=== PATIENT | female | born 1990 | race Caucasian/White ===

== ENCOUNTER 2017-04-05 14:25 | Outpatient (CLI) | payer OTHER ==
--- NOTE | 2017-04-05 18:09 | Ultrasound Report ---
ABDOMEN ULTRASOUND, LIMITED: 04/05/2017 HISTORY: Right upper quadrant pain. COMPARISON: 01/12/2014 ultrasound. Real-time scanning by the customer experience strategist with saved static images reviewed. LIVER: 14.1 cm longitudinally. Small focal area of increased echogenicity superior right lobe, 5 mm in diameter, likely a small hemangioma. Otherwise, no focal pathology seen. GALLBLADDER: No stones. A 3 mm polyp present. Wall thickness 1.4 mm. COMMON BILE DUCT: 2.4 mm. RIGHT KIDNEY: 10.1 cm longitudinally. Unremarkable. FREE FLUID: None. IMPRESSION: A 3 MM GALLBLADDER POLYP. A 5 MM HEPATIC HEMANGIOMA. OTHERWISE NEGATIVE. JOB #: [id number] EXT JOB #:[id number]
== END 2017-04-05 14:26 | disposition home or self-care (01) ==
LOC: DI 14:25
PROVIDERS: ATTEND Nurse Practitioner Family
DX: K82.4 Cholesterolosis of gallbladder (principal); D18.03 Hemangioma of intra-abdominal structures
CPT/HCPCS: 76705

== ENCOUNTER 2017-08-21 08:00 | Outpatient (CLI) | payer OTHER ==
[2017-08-22 11:44] LABS: BASOPHILS % (AUTO) 0.5 %; EOSINOPHILS # (AUTO) 0.1 10^3/uL (0.0-0.7); EOSINOPHILS % (AUTO) 2.5 %; HGB - HEMOGLOBIN 14.3 g/dL (12.0-16.0); LYMPHOCYTES # (AUTO) 1.6 10^3/uL (1.5-3.5); LYMPHOCYTES % (AUTO) 31.3 %; MEAN CORPUSCULAR HEMOGLOBIN 32.8 pg (27.0-31.0); MEAN CORPUSCULAR HGB CONC 33.5 g/dL (32.0-36.0); MEAN CORPUSCULAR VOLUME 98.2 fL (81.0-99.0); MEAN PLATELET VOLUME 8.6 fL (7.9-10.8); MONOCYTES # (AUTO) 0.5 10^3/uL (0.0-1.0); MONOCYTES % (AUTO) 8.8 %; NEUTROPHILS # (AUTO) 2.9 10^3/uL (1.5-6.6); NEUTROPHILS % (AUTO) 56.9 %; PLT - PLATELET COUNT 231 10^3/uL (130-450); RED BLOOD COUNT 4.34 10^6/uL (4.20-5.40); RED CELL DISTRIBUTION WIDTH 14.2 % (12.0-15.0); WHITE BLOOD COUNT 5.1 x10^3/uL (4.8-10.8)
[2017-08-22 12:09] LABS: ALBUMIN 4.6 g/dL (3.2-5.5); ALBUMIN/GLOBULIN RATIO 1.5 (1.0-2.2); ALKALINE PHOSPHATASE 40 IU/L (42-121); ALT ALANINE AMINOTRANSFERASE 12 IU/L (10-60); AST ASPARTATE AMINOTRANSFERASE 15 IU/L (10-42); BILIRUBIN,TOTAL 0.3 mg/dL (0.2-1.0); BUN - BLOOD UREA NITROGEN 7 mg/dL (6-20); CALCIUM 9.5 mg/dL (8.5-10.3); CARBON DIOXIDE - CO2 24 mmol/L (21-32); CHLORIDE 102 mmol/L (101-111); CREATININE 0.6 mg/dL (0.4-1.0); GFR - MDRD 120 (>89); GLUCOSE 99 mg/dL (70-100); SODIUM 138 mmol/L (135-145); TOTAL PROTEIN 7.6 g/dL (6.7-8.2)
== END 2017-08-21 08:01 | disposition home or self-care (01) ==
LOC: LAB.F 08:00
PROVIDERS: ATTEND Physician Assistant Medical
DX: Z00.00 Encounter for general adult medical examination without abnormal findings (principal); R53.83 Other fatigue
CPT/HCPCS: 36415; 80053; 84443; 85025

== ENCOUNTER 2017-09-01 15:22 | Outpatient (CLI) | payer OTHER ==
--- NOTE | 2017-09-03 08:15 | Ultrasound Report ---
EXAM: THYROID ULTRASOUND EXAM DATE: 09/01/2017 04:06 PM. CLINICAL HISTORY: ENLARGED THYROID, FATIGUE. COMPARISON: None. TECHNIQUE: Real time sonographic imaging of the thyroid was performed by the moss bleacher. Multiple re presentative static images were saved for review. FINDINGS: THYROID GLAND: Right Lobe: 4.3 x 1.0 x 1.0 cm, volume 2.2 cc. Normal background echotexture. Right Lobe Nodules: 2 solid nodules of the lower lobe, 7 mm and 6 mm respectively. No calcifications. Left Lobe: 4.6 x 1.6 x 1.2 cm, volume 4.4 cc. Normal background echotexture. Left Lobe Nodules: None. Isthmus: 0.2 cm AP. Isthmic Nodules: None. LYMPH NODES: No adenopathy demonstrated in the central or lateral compartment. IMPRESSION: Subcentimeter right thyroid nodules as above. Management recommendations are based on 2015 [place] [employer] Management Guidelines for A dult Patients with Thyroid Nodules and Differentiated Thyroid Cancer. [facility] Referring Provider Line: [phone] SITE ID: [id number]
== END 2017-09-01 15:23 | disposition home or self-care (01) ==
LOC: DI 15:22
PROVIDERS: ATTEND Physician Assistant Medical
DX: E04.2 Nontoxic multinodular goiter (principal)
CPT/HCPCS: 76536

== ENCOUNTER 2017-12-04 15:09 | Emergency (ER) | payer OTHER ==
[2017-12-04 15:25] VITALS: BP 144/92
[2017-12-04 15:49] LABS: MUDS CUTOFF CONCENTRATIONS CUTOFF CONC BELOW:
[2017-12-04 15:51] LABS: BILIRUBIN,URINE NEGATIVE (NEGATIVE); GLUCOSE, URINE (UA) NEGATIVE (NEGATIVE); KETONES,URINE (UA) NEGATIVE (NEGATIVE); LEUKOCYTE ESTERASE, URINE NEGATIVE (NEGATIVE); NITRITE,URINE NEGATIVE (NEGATIVE); OCCULT BLOOD,URINE LARGE (NEGATIVE); PROTEIN,URINE NEGATIVE (NEGATIVE); UROBILINOGEN,URINE 0.2 (NORMAL) E.U./dL (NORMAL)
[2017-12-04 15:53] LABS: CLARITY,URINE CLEAR (CLEAR); HCG UR QUAL NEGATIVE
--- NOTE | 2017-12-04 15:57 | ED Physician Documentation ---
PD HPI MHE - Stated complaint Stated Complaint: WITHDRAWAL/ANXIETY/MHE - Chief complaint Chief Complaint: MHE - History obtained from History obtained from: Patient - History of Present Illness Primary symptom: Depression, Anxiety (feeling anxiety the past couple weeks since stopping drinking, and then had day of heavy drinking 2 nights ago, and then more anxious yeserday/today. Having some intrusive thoughts, such as "I wonder what would happen if I drove off the road" without really wanting to hurt herself. She is bothered by these and would like help. She is not hearing voices nor having any visual hallucinations.). No: Suicide attempt, Psychosis Timing - onset: How many weeks ago (2 weeks anxious, off alcohol. Was doing better and then drank again a day and is feeling more anxious the past day, as well as underlying depression. Not suicidal per se.) Contributing factors: Substance abuse - ETOH. No: Substance abuse - drugs Recently seen: Not recently seen Review of Systems Constitutional: denies: Fever Nose: denies: Rhinorrhea / runny nose, Congestion Throat: denies: Sore throat Cardiac: denies: Chest pain / pressure, Palpitations Respiratory: denies: Dyspnea, Cough GI: reports: Nausea (less appetite). denies: Abdominal Pain, Vomiting, Diarrhea Skin: denies: Rash, Lesions Neurologic: denies: Generalized weakness, Focal weakness, Numbness, Near syncope Psychiatric: reports: Depressed, Anxiety. denies: Suicidal, Homicidal, Delusions, Insomnia Endocrine: denies: Weight loss Immunocompromised: denies: Immunocompromised PD PAST MEDICAL HISTORY - Past Medical History Cardiovascular: None Respiratory: None Neuro: None Endocrine/Autoimmune: None Psych: Depression, Anxiety - Past Surgical History Past Surgical History: Yes - Present Medications Home Medications: Ambulatory Orders Medication Instructions Recorded Confirmed Amitriptyline [Elavil] 25 mg PO HS #30 tablet 12/04/17 Cholecalciferol (Vitamin D3) 2,000 unit PO DAILY #60 capsule 12/04/17 [Vitamin D] clonazePAM [Clonazepam] 0.5 mg PO BID PRN #20 tablet 12/04/17 - Allergies Allergies/Adverse Reactions: Allergies Allergy/AdvReac Type Severity Reaction Status Date / Time bupropion [From Wellbutrin] AdvReac Anxiety Verified 12/04/17 15:25 - Social History Does the pt smoke?: Yes Smoking Status: Current every day smoker Does the pt drink ETOH?: Yes Does the pt have substance abuse?: Yes PD ED PE NORMAL - Vitals Vital signs reviewed: Yes - General General: Alert and oriented X 3, No acute distress, Well developed/nourished, Other (pleasant, insightful, concerned about some intrusive thoughts. Speaks openly about symptoms. States she is committed to stopping drinking. ) - HEENT HEENT: Pharynx benign - Neck Neck: Supple, no meningeal sign, No adenopathy, Thyroid normal - Cardiac Cardiac: RRR, No murmur - Respiratory Respiratory: Clear bilaterally - Abdomen Abdomen: Normal bowel sounds, Soft, Non distended, No organomegaly, Other (mild epigastric tenderness without guarding. ) - Back Back: No CVA TTP - Derm Derm: Normal color, Warm and dry - Neuro Neuro: Alert and oriented X 3, No motor deficit, Normal speech - Psych Psych: Normal affect. No: Normal mood (somewhat sad, but not tearful. Does not present as anxious right now. ) Results - Vitals Vitals: Vital Signs - 24 hr 12/04/17 15:21 Temperature 36.7 C Heart Rate 93 Respiratory 14 Rate Blood Pressure 144/92 H O2 Saturation 98 Oxygen O2 Source Room air - Labs Labs: Laboratory Tests 12/04/17 12/04/17 12/04/17 15:40 15:40 15:50 WBC 11.0 H RBC 4.64 Hgb 14.7 Hct 44.8 MCV 96.6 MCH 31.7 H MCHC 32.8 RDW 13.1 Plt Count MPV 8.3 Neut # 8.7 H Lymph # 1.6 Bond # 0.5 Eos # 0.1 Baso # 0.0 Absolute Nucleated RBC 0.01 Nucleated RBC % 0.1 Manual Slide Review Indicated Platelet Estimate NORMAL (130-450,000) Platelet Morphology PLATELET CLUMPING RBC Morph Micro Appear NORMAL APPEARANCE Sodium Potassium Chloride Carbon Dioxide Anion Gap BUN Creatinine Estimated GFR (MDRD) Glucose Calcium Total Bilirubin AST ALT Alkaline Phosphatase Total Protein Albumin Globulin Albumin/Globulin Ratio Lipase TSH Urine Color YELLOW Urine Clarity CLEAR Urine pH 6.0 Ur Specific [place] 1.010 Urine Protein NEGATIVE Urine Glucose (UA) NEGATIVE Urine Ketones NEGATIVE Urine Occult Blood LARGE H Urine Nitrite NEGATIVE Urine Bilirubin NEGATIVE Urine Urobilinogen 0.2 (NORMAL) Ur Leukocyte Esterase NEGATIVE Urine RBC 11-25 H Urine WBC 0-3 Ur Squamous Epith Cells RARE Squamous Urine Bacteria Rare Ur Microscopic Review INDICATED Urine Culture Comments NOT INDICATED Urine HCG, Qual NEGATIVE Salicylates Urine Opiates Screen NEGATIVE Ur Oxycodone Screen NEGATIVE Urine Methadone Screen NEGATIVE Ur Propoxyphene Screen NEGATIVE Acetaminophen Ur Barbiturates Screen NEGATIVE Ur Tricyclics Screen NEGATIVE Ur Phencyclidine Scrn NEGATIVE Ur Amphetamine Screen NEGATIVE U Methamphetamines Scrn NEGATIVE U Benzodiazepines Scrn NEGATIVE Urine Cocaine Screen NEGATIVE U Cannabinoids Screen NEGATIVE Ethyl Alcohol 12/04/17 12/04/17 15:50 15:50 WBC RBC Hgb Hct MCV MCH MCHC RDW Plt Count MPV Neut # Lymph # Bond # Eos # Baso # Absolute Nucleated RBC Nucleated RBC % Manual Slide Review Platelet Estimate Platelet Morphology RBC Morph Micro Appear Sodium 135 Potassium 3.7 Chloride 102 Carbon Dioxide 21 Anion Gap 12.0 BUN 9 Creatinine 0.6 Estimated GFR (MDRD) 119 Glucose 110 H Calcium 9.4 Total Bilirubin 1.0 AST 18 ALT 17 Alkaline Phosphatase 46 Total Protein 7.8 Albumin 4.8 Globulin 3.0 Albumin/Globulin Ratio 1.6 Lipase 17 L TSH 2.07 Urine Color Urine Clarity Urine pH Ur Specific [place] Urine Protein Urine Glucose (UA) Urine Ketones Urine Occult Blood Urine Nitrite Urine Bilirubin Urine Urobilinogen Ur Leukocyte Esterase Urine RBC Urine WBC Ur Squamous Epith Cells Urine Bacteria Ur Microscopic Review Urine Culture Comments Urine HCG, Qual Salicylates < 6.0 Urine Opiates Screen Ur Oxycodone Screen Urine Methadone Screen Ur Propoxyphene Screen Acetaminophen < 10 L Ur Barbiturates Screen Ur Tricyclics Screen Ur Phencyclidine Scrn Ur Amphetamine Screen U Methamphetamines Scrn U Benzodiazepines Scrn Urine Cocaine Screen U Cannabinoids Screen Ethyl Alcohol < 5.0 PD MEDICAL DECISION MAKING - ED course Complexity details: considered differential (she had been sober for 2 weeks and then drank heavily 2 nights ago and having anxiety and some intrusive thoughts today. Not suicidal per se. Social Work not going to be able to see her (they leave at 5 pm and called at 16:40 to say did not have time - consulted/voice mail msg was 15:38. ), d/w patient ED course: I talked with patient and she is not suicidal. Concerned about the intrusive thoughts and feeling of anxiety. This might be some withdrawal symptoms. Could be underlying anxiety and depression not being covered by the prior regular alcohol. She had had side effects significantly with trials of Paxil and Prozac in the past. Wellbutrin did okay for awhile but then some side effects. So SSRIs not likely a good choice for her. Could try low dose Elavil at night, Vitamin D, and the short term some benzo for the anxiety/?withdrawal. To follow up with PMD. She is trying to get appt back with [facility]. Given Crisis Line number. She verbally contracts to not hurt herself and will call Crisis Line if needs help. Departure - Departure Disposition: Home, Self Care Clinical Impression: Anxiety, Alcohol abuse Depression Qualifiers: Depression Type: other depression Qualified Code(s): F32.89 - Other specified depressive episodes Condition: Stable Record reviewed to determine appropriate education?: Yes Instructions: ED Depression Follow-Up: Darleen Ngo PA-C [Primary Care Provider] - Prescriptions: Amitriptyline [Elavil] 25 mg PO HS #30 tablet Cholecalciferol (Vitamin D3) [Vitamin D] 2,000 unit PO DAILY #60 capsule clonazePAM [Clonazepam] 0.5 mg PO BID PRN #20 tablet PRN Reason: Anxiety Comments: Drink lots of fluids. No alcohol. Your stomach may be a little irritated from prior alcohol use and you could consider some acid reducing medicine such as ranitidine daily for a week or two. Vitamin D 2000 units daily for the next month or two to help with depression. In the short-term to help with anxiety and likely some mild withdrawal symptoms, you can use clonazepam at night and add another dose during the day if needed for symptoms. For the longer term for anxiety and depression, could start with a low-dose of Elavil 25 mg at night. Follow-up with your primary care in the next week or so and see how you are doing with these medications. If need be for depression you can also call the crisis line when needed. Try to follow up with [facility] for an appointment at their next availability. Discharge Date/Time: 12/04/17 16:40
[2017-12-04 16:02] LABS: BASOPHILS % (AUTO) 0.4 %; EOSINOPHILS # (AUTO) 0.1 10^3/uL (0.0-0.7); EOSINOPHILS % (AUTO) 0.7 %; HGB - HEMOGLOBIN 14.7 g/dL (12.0-16.0); LYMPHOCYTES # (AUTO) 1.6 10^3/uL (1.5-3.5); MEAN CORPUSCULAR HEMOGLOBIN 31.7 pg (27.0-31.0); MEAN CORPUSCULAR HGB CONC 32.8 g/dL (32.0-36.0); MEAN CORPUSCULAR VOLUME 96.6 fL (81.0-99.0); MEAN PLATELET VOLUME 8.3 fL (7.9-10.8); MONOCYTES # (AUTO) 0.5 10^3/uL (0.0-1.0); MONOCYTES % (AUTO) 4.9 %; NEUTROPHILS # (AUTO) 8.7 10^3/uL (1.5-6.6); RED BLOOD COUNT 4.64 10^6/uL (4.20-5.40); RED CELL DISTRIBUTION WIDTH 13.1 % (12.0-15.0)
[2017-12-04 16:02] LABS: AMPHETAMINE SCREEN,URINE NEGATIVE (NEGATIVE); BENZODIAZEPINES SCREEN, URINE NEGATIVE (NEGATIVE); COCAINE SCREEN URINE NEGATIVE (NEGATIVE); METHADONE SCREEN, URINE NEGATIVE (NEGATIVE); METHAMPHETAMINES SCREEN, URINE NEGATIVE (NEGATIVE); OPIATE SCREEN, URINE NEGATIVE (NEGATIVE); OXYCODONE SCREEN, URINE NEGATIVE (NEGATIVE); PROPOXYPHENE SCREEN, URINE NEGATIVE (NEGATIVE); TRICYCLIC ANTIDEPRESSANT,URINE NEGATIVE (NEGATIVE)
[2017-12-04 16:03] LABS: BACTERIA,URINE Rare /HPF (None Seen); SQUAMOUS EPITHELIAL CELL,UR RARE Squamous (<= Few)
[2017-12-04 16:13] LABS: ALBUMIN 4.8 g/dL (3.2-5.5); ALBUMIN/GLOBULIN RATIO 1.6 (1.0-2.2); ALKALINE PHOSPHATASE 46 IU/L (42-121); ALT ALANINE AMINOTRANSFERASE 17 IU/L (10-60); AST ASPARTATE AMINOTRANSFERASE 18 IU/L (10-42); BUN - BLOOD UREA NITROGEN 9 mg/dL (6-20); CALCIUM 9.4 mg/dL (8.5-10.3); CARBON DIOXIDE - CO2 21 mmol/L (21-32); CHLORIDE 102 mmol/L (101-111); CREATININE 0.6 mg/dL (0.4-1.0); GFR - MDRD 119 (>89); GLUCOSE 110 mg/dL (70-100); LIPASE 17 U/L (22-51); SALICYLATE < 6.0 mg/dL; SODIUM 135 mmol/L (135-145); TOTAL PROTEIN 7.8 g/dL (6.7-8.2)
[2017-12-04 16:15] LABS: ACETAMINOPHEN < 10 ug/mL (10-30)
[2017-12-04 16:24] LABS: PLATELET ESTIMATE, MANUAL NORMAL (130-450,000) (NORMAL); PLATELET MORPHOLOGY PLATELET CLUMPING (NORMAL); RBC MORPHOLOGY (MULTIPLE) NORMAL APPEARANCE (NORMAL)
== END 2017-12-04 16:40 | disposition home or self-care (01) ==
LOC: ED 15:09
DX: F32.89 Other specified depressive episodes (principal); F41.9 Anxiety disorder, unspecified; F10.10 Alcohol abuse, uncomplicated; F17.200 Nicotine dependence, unspecified, uncomplicated
CPT/HCPCS: 36415; 80053; 80306; 80307; 80320; 80329; 81001; 81003; 81025; 83690; 84443; 85025; 87086; 99283; 99284

== ENCOUNTER 2018-02-10 17:53 | Emergency (ER) | payer OTHER ==
--- NOTE | 2018-02-10 19:15 | ED Physician Documentation ---
PD HPI DYSPNEA - Stated complaint Stated Complaint: DIZZY/SOA - Chief complaint Chief Complaint: Cardiac - History obtained from History obtained from: Patient - History of Present Illness Timing - onset: Today (27-year-old woman with history of anxiety, she stopped her fluoxetine about a week ago because she was going to go bring binge drinking and did not want to combine that with her Prozac. Today she started to feel very short of breath and she felt bilateral hand numbness and perioral numbness in the arm started cramping especially when she had her blood pressure taken in triage. She feels much better now after some time without specific intervention.) Review of Systems Constitutional: denies: Fever, Chills, Fatigue Cardiac: denies: Pedal edema, Calf pain Respiratory: denies: Cough, Hemoptysis, Wheezing PD PAST MEDICAL HISTORY - Past Medical History Cardiovascular: None Respiratory: None Neuro: None Endocrine/Autoimmune: None Psych: Depression, Anxiety - Past Surgical History Past Surgical History: Yes - Allergies Allergies/Adverse Reactions: Allergies Allergy/AdvReac Type Severity Reaction Status Date / Time bupropion [From Wellbutrin] AdvReac Anxiety Verified 02/10/18 18:04 - Social History Does the pt smoke?: Yes Smoking Status: Current every day smoker Does the pt drink ETOH?: Yes Does the pt have substance abuse?: Yes - Immunizations Immunizations are current?: Yes PD ED PE NORMAL - Vitals Vital signs reviewed: Yes - General General: Alert and oriented X 3, No acute distress - Neck Neck: Supple, no meningeal sign, No bony TTP - Cardiac Cardiac: RRR, No murmur - Respiratory Respiratory: No respiratory distress, Clear bilaterally - Abdomen Abdomen: Non tender - Neuro Neuro: Alert and oriented X 3, Normal speech Eye Opening: Spontaneous Motor: Obeys Commands Verbal: Oriented GCS Score: 15 - Psych Psych: Normal mood, Normal affect Results - Vitals Vitals: Vital Signs - 24 hr 02/10/18 02/10/18 18:00 18:36 Temperature 36.6 C Heart Rate 89 75 Respiratory 20 17 Rate Blood Pressure 91/75 112/79 O2 Saturation 100 100 Oxygen O2 Source Room air - EKG (time done) 1808 Rate: Rate (enter#) (80) Rhythm: NSR [place]: Normal Intervals: Normal HI QRS: Normal Ischemia: Normal ST segments Computer interpretation: Agree with computer PD MEDICAL DECISION MAKING - ED course ED course: She was reassured that the history is completely consistent with a panic attack and she has some alprazolam at home she can take for recurrent symptoms. - Sepsis Event Vital Signs: Vital Signs - 24 hr 02/10/18 02/10/18 18:00 18:36 Temperature 36.6 C Heart Rate 89 75 Respiratory 20 17 Rate Blood Pressure 91/75 112/79 O2 Saturation 100 100 Oxygen O2 Source Room air Departure - Departure Disposition: 01 Home, Self Care Clinical Impression: Anxiety Condition: Good Record reviewed to determine appropriate education?: Yes Instructions: ED Panic Attack Comments: Call your doctor to arrange a follow-up appointment, make the next available appointment. In the interim, return anytime if worse or if new symptoms develop.
[2018-02-10 19:20] VITALS: BP 131/88
== END 2018-02-10 19:21 | disposition home or self-care (01) ==
LOC: ED 17:53
DX: F41.9 Anxiety disorder, unspecified (principal); F17.200 Nicotine dependence, unspecified, uncomplicated
CPT/HCPCS: 80053; 83690; 85025; 93005; 99283

== ENCOUNTER 2018-05-11 18:45 | Emergency (ER) | payer OTHER ==
[2018-05-11 19:26] LABS: BASOPHILS % (AUTO) 0.2 %; EOSINOPHILS # (AUTO) 0.2 10^3/uL (0.0-0.7); EOSINOPHILS % (AUTO) 2.5 %; HGB - HEMOGLOBIN 14.2 g/dL (12.0-16.0); LYMPHOCYTES # (AUTO) 1.9 10^3/uL (1.5-3.5); LYMPHOCYTES % (AUTO) 28.5 %; MEAN CORPUSCULAR VOLUME 94.3 fL (81.0-99.0); MEAN PLATELET VOLUME 7.8 fL (7.9-10.8); MONOCYTES # (AUTO) 0.5 10^3/uL (0.0-1.0); MONOCYTES % (AUTO) 7.9 %; NEUTROPHILS # (AUTO) 4.2 10^3/uL (1.5-6.6); NEUTROPHILS % (AUTO) 60.9 %; PLT - PLATELET COUNT 206 10^3/uL (130-450); WHITE BLOOD COUNT 6.8 x10^3/uL (4.8-10.8)
[2018-05-11 19:27] LABS: BILIRUBIN,URINE NEGATIVE (NEGATIVE); GLUCOSE, URINE (UA) NEGATIVE (NEGATIVE); KETONES,URINE (UA) NEGATIVE (NEGATIVE); LEUKOCYTE ESTERASE, URINE NEGATIVE (NEGATIVE); NITRITE,URINE NEGATIVE (NEGATIVE); OCCULT BLOOD,URINE MODERATE (NEGATIVE); PROTEIN,URINE NEGATIVE (NEGATIVE); UROBILINOGEN,URINE 0.2 (NORMAL) E.U./dL (NORMAL)
--- NOTE | 2018-05-11 19:27 | ED Physician Documentation ---
PD HPI ABD PAIN - Stated complaint Stated Complaint: ABD PX/VOMITING - Chief complaint Chief Complaint: Abd Pain - History obtained from History obtained from: Patient, Family - History of Present Illness Timing - onset: Other (27-year-old woman with history of recurrent right upper quadrant pain, in the past she has had ultrasound showing a small gallbladder polyp and she does have a history of alcohol abuse. She quit drinking about 3 days ago. She presents with 5 days of stabbing intermittent right upper quadrant pain that is worse with certain positions and worse with deep breathing and eating. There is no associated shortness of breath. She has been vomiting without blood. She quit drinking 3 days ago, wonders if she might be withdrawing but denies any shakiness, headache, hallucinations.) Review of Systems Ten Systems: 10 systems reviewed and negative Constitutional: denies: Fever, Chills Throat: denies: Dental pain / toothache, Sore throat Cardiac: denies: Chest pain / pressure, Palpitations Respiratory: denies: Dyspnea, Cough PD PAST MEDICAL HISTORY - Past Medical History Cardiovascular: None Respiratory: None Neuro: None Endocrine/Autoimmune: None Psych: Depression, Anxiety - Past Surgical History Past Surgical History: Yes - Present Medications Home Medications: Ambulatory Orders Medication Instructions Recorded Confirmed Omeprazole 20 mg PO DAILY 30 Days tablet. 05/11/18 - Allergies Allergies/Adverse Reactions: Allergies Allergy/AdvReac Type Severity Reaction Status Date / Time bupropion [From Wellbutrin] AdvReac Anxiety Verified 05/11/18 18:58 - Social History Does the pt smoke?: Yes Smoking Status: Current every day smoker Does the pt drink ETOH?: Yes Does the pt have substance abuse?: Yes - Immunizations Immunizations are current?: Yes PD ED PE NORMAL - Vitals Vital signs reviewed: Yes - General General: Alert and oriented X 3, No acute distress - HEENT HEENT: PERRL, EOMI, Other (Sclera are nonicteric) - Neck Neck: Supple, no meningeal sign, No bony TTP - Cardiac Cardiac: RRR, No murmur - Respiratory Respiratory: No respiratory distress, Clear bilaterally - Abdomen Abdomen: Other (Mild right upper quadrant tenderness with negative Franz sign, no guarding or rebound.) - Back Back: No CVA TTP, No spinal TTP - Derm Derm: Normal color, Warm and dry - Extremities Extremities: No edema, No calf tenderness / cord - Neuro Neuro: Alert and oriented X 3, Normal speech Results - Vitals Vitals: Vital Signs - 24 hr 05/11/18 05/11/18 18:56 21:07 Temperature 36.9 C Heart Rate 97 71 Respiratory 18 16 Rate Blood Pressure 136/90 H 139/86 H O2 Saturation 100 100 Oxygen O2 Source Room air - Labs Labs: Laboratory Tests 05/11/18 05/11/18 05/11/18 19:15 19:21 19:21 WBC 6.8 RBC 4.30 Hgb 14.2 Hct 40.5 MCV 94.3 MCH 33.0 H MCHC 35.0 RDW 13.0 Plt Count 206 MPV 7.8 L Neut # (Auto) 4.2 Lymph # (Auto) 1.9 [place] # (Auto) 0.5 Eos # (Auto) 0.2 Baso # (Auto) 0.0 Absolute Nucleated RBC 0.00 Nucleated RBC % 0.0 Sodium 137 Potassium 4.1 Chloride 104 Carbon Dioxide 26 Anion Gap 7.0 BUN 11 Creatinine 0.5 Estimated GFR (MDRD) 147 Glucose 95 Calcium 9.3 Total Bilirubin 0.3 AST 14 ALT 13 Alkaline Phosphatase 57 Total Protein 7.9 Albumin 4.5 Globulin 3.4 Albumin/Globulin Ratio 1.3 Lipase 22 Urine Color YELLOW Urine Clarity HAZY Urine pH 6.0 Ur Specific [place] 1.015 Urine Protein NEGATIVE Urine Glucose (UA) NEGATIVE Urine Ketones NEGATIVE Urine Occult Blood MODERATE H Urine Nitrite NEGATIVE Urine Bilirubin NEGATIVE Urine Urobilinogen 0.2 (NORMAL) Ur Leukocyte Esterase NEGATIVE Urine RBC 0-5 Urine WBC 4-5 Ur Squamous Epith Cells FEW Squamous Urine Bacteria Rare Ur Microscopic Review INDICATED Urine Culture Comments NOT INDICATED Urine HCG, Qual NEGATIVE Ethyl Alcohol < 5.0 - Rads (name of study) RUQ son Radiology: EMP read contemporaneously (Basically a negative study without cholelithiasis or cholecystitis. She does have a tiny nonmobile nonshadowing echogenicity in the gallbladder that may be a polyp, about 2 mm, basically unchanged from prior exam.) PD MEDICAL DECISION MAKING - ED course ED course: 27-year-old woman who is trying to quit heavy alcohol use presents with 5 days of right upper quadrant pain. She does not appear jaundiced or significantly tender. She declined pain medication on initial evaluation. She had specific concerns about prior ultrasound showing a gallbladder polyp and wondering if her gallbladder needed to be taken out or if her liver was inflamed. Gallbladder polyp really I think is too small to be causing symptoms and there is no evidence of alcoholic hepatitis on labs. She declined pain medication, but we decided to try a GI cocktail to see if this might be more likely to be alcoholic gastritis. She had excellent relief with a GI cocktail likely confirming the diagnosis of alcoholic gastritis and we will start a PPI. Departure - Departure Disposition: 01 Home, Self Care Clinical Impression: Gastritis Qualifiers: Gastritis type: alcoholic Chronicity: chronic Gastritis bleeding: without bleeding Qualified Code(s): K29.20 - Alcoholic gastritis without bleeding Condition: Good Record reviewed to determine appropriate education?: Yes Instructions: ED Gastritis Prescriptions: Omeprazole 20 mg PO DAILY 30 Days tablet. Comments: As discussed, the relief you had with the GI cocktail in addition to the lack of other findings, specifically Unremarkable gallbladder ultrasound and lack of liver inflammation suggests that your symptoms are due to alcoholic gastritis. Continue to refrain from alcohol. Used to have relief for a few days with the proton pump inhibitor "omeprazole." Call your doctor to arrange a follow-up appointment, make the next available appointment. In the interim, return anytime if worse or if new symptoms develop.
[2018-05-11 19:28] LABS: CLARITY,URINE HAZY (CLEAR); HCG UR QUAL NEGATIVE
[2018-05-11] MEDS ORDERED: ONDANSETRON 4 MG/2 ML VIAL IVP STA (19:28)
[2018-05-11 19:36] LABS: BACTERIA,URINE Rare /HPF (None Seen); RBC,URINE 0-5 /HPF (0-5); SQUAMOUS EPITHELIAL CELL,UR FEW Squamous (<= Few)
[2018-05-11 19:36] LABS: ALBUMIN 4.5 g/dL (3.2-5.5); ALBUMIN/GLOBULIN RATIO 1.3 (1.0-2.2); ALKALINE PHOSPHATASE 57 IU/L (42-121); ALT ALANINE AMINOTRANSFERASE 13 IU/L (10-60); AST ASPARTATE AMINOTRANSFERASE 14 IU/L (10-42); BILIRUBIN,TOTAL 0.3 mg/dL (0.2-1.0); BUN - BLOOD UREA NITROGEN 11 mg/dL (6-20); CALCIUM 9.3 mg/dL (8.5-10.3); CARBON DIOXIDE - CO2 26 mmol/L (21-32); CHLORIDE 104 mmol/L (101-111); CREATININE 0.5 mg/dL (0.4-1.0); GFR - MDRD 147 (>89); GLUCOSE 95 mg/dL (70-100); LIPASE 22 U/L (22-51); SODIUM 137 mmol/L (135-145); TOTAL PROTEIN 7.9 g/dL (6.7-8.2)
--- NOTE | 2018-05-11 20:53 | Ultrasound Report ---
Reason: RUQ pain, h/o small GB polyp Procedure Date: 05/11/2018 Accession Number: [id number] / [id number] Procedure: US - Abdomen Limited CPT Code: FULL RESULT: EXAM: ABDOMEN ULTRASOUND LIMITED, RUQ EXAM DATE: 05/11/2018 08:20 PM. CLINICAL HISTORY: RUQ pain, h/o small GB polyp. COMPARISON: ABDOMEN LIMITED 04/05/2017 2:41 PM. TECHNIQUE: Real-time scanning was performed with static images obtained. FINDINGS: Liver: Tiny echogenic focus in the left hepatic lobe measuring 5 mm may represent a small hemangioma. Otherwise unremarkable appearance of the liver. 14.3 cm. Main portal vein flow: Hepatopetal. Gallbladder: No cholelithiasis, pericholecystic fluid, or wall thickening. Tiny non-mobile, nonshadowing echogenicity in the gallbladder measuring 2 mm may represent a polyp. This appears unchanged from the prior exam. Based on size, no follow-up needed. Biliary System: CBD measures 3 mm. No intrahepatic or extrahepatic ductal dilatation. Other: The right kidney measures 9.3 cm in length and has a normal appearance. IMPRESSION: No evidence of cholelithiasis or acute cholecystitis. [facility]
[2018-05-11] MEDS ORDERED: LIDOCAINE VISCOUS 2% 15 ML UDC MM STA (21:00)
[2018-05-11] MEDS ORDERED: MAG HYDROX/AL HYDROX/SIMETH 30 ML UDC PO STA (21:00)
[2018-05-11 21:07] VITALS: BP 139/86
[2018-05-11] MEDS ORDERED: PANTOPRAZOLE 40 MG TABLET PO STA (21:19)
== END 2018-05-11 21:27 | disposition home or self-care (01) ==
LOC: ED 18:45
DX: K29.20 Alcoholic gastritis without bleeding (principal); F17.200 Nicotine dependence, unspecified, uncomplicated
CPT/HCPCS: 36415; 76705; 80053; 80320; 81001; 81025; 83690; 85025; 96374; 99283; A9270; 81003; 87086

== ENCOUNTER 2019-08-13 15:15 | Outpatient (CLI) | payer BC, OTHER | END 2019-08-13 23:59 | disposition home or self-care (01) | LOC: LAB.R 15:15 | PROVIDERS: ATTEND Physician Assistant Medical | DX: J02.9 Acute pharyngitis, unspecified (principal) | CPT/HCPCS: 87070 ==

== ENCOUNTER 2019-09-01 12:21 | Outpatient (CLI) | payer BC ==
[2019-09-01 12:39] LABS: BASOPHILS % (AUTO) 0.3 %; EOSINOPHILS # (AUTO) 0.5 10^3/uL (0.0-0.7); EOSINOPHILS % (AUTO) 5.5 %; HGB - HEMOGLOBIN 13.7 g/dL (12.0-16.0); LYMPHOCYTES # (AUTO) 2.6 10^3/uL (1.5-3.5); LYMPHOCYTES % (AUTO) 28.2 %; MEAN CORPUSCULAR HEMOGLOBIN 30.4 pg (27.0-31.0); MEAN CORPUSCULAR HGB CONC 31.8 g/dL (32.0-36.0); MEAN CORPUSCULAR VOLUME 95.6 fL (81.0-99.0); MEAN PLATELET VOLUME 9.2 fL (7.9-10.8); MONOCYTES # (AUTO) 0.9 10^3/uL (0.0-1.0); MONOCYTES % (AUTO) 9.9 %; NEUTROPHILS # (AUTO) 5.2 10^3/uL (1.5-6.6); NEUTROPHILS % (AUTO) 55.8 %; PLT - PLATELET COUNT 254 10^3/uL (130-450); RED BLOOD COUNT 4.51 10^6/uL (4.20-5.40); RED CELL DISTRIBUTION WIDTH 12.8 % (12.0-15.0); WHITE BLOOD COUNT 9.3 x10^3/uL (4.8-10.8)
== END 2019-09-01 12:22 | disposition home or self-care (01) ==
LOC: LAB 12:21
PROVIDERS: ATTEND Nurse Practitioner
DX: Z00.00 Encounter for general adult medical examination without abnormal findings (principal); Z13.29 Encounter for screening for other suspected endocrine disorder
CPT/HCPCS: 36415; 84443; 85025

== ENCOUNTER 2020-04-06 16:58 | Outpatient (CLI) | payer BC | END 2020-04-06 16:59 | disposition home or self-care (01) | LOC: COV 16:58 | PROVIDERS: ATTEND Family Medicine | DX: R05 Cough (principal); R06.02 Shortness of breath; R53.83 Other fatigue; J02.9 Acute pharyngitis, unspecified; R19.7 Diarrhea, unspecified; R09.81 Nasal congestion; R11.2 Nausea with vomiting, unspecified; Z20.828 Contact with and (suspected) exposure to other viral communicable diseases ==

== ENCOUNTER 2020-07-12 15:15 | Outpatient (CLI) | payer BC | END 2020-07-12 15:16 | disposition home or self-care (01) | LOC: LAB 15:15 | PROVIDERS: ATTEND Midwife | DX: O20.0 Threatened abortion (principal) | CPT/HCPCS: 36415; 84702 ==

== ENCOUNTER 2020-07-15 13:21 | Outpatient (CLI) | payer BC | END 2020-07-15 13:22 | disposition home or self-care (01) | LOC: LAB 13:21 | PROVIDERS: ATTEND Midwife | DX: O20.0 Threatened abortion (principal) | CPT/HCPCS: 36415; 84144; 84702 ==

== ENCOUNTER 2020-07-20 10:33 | Outpatient (CLI) | payer BC | END 2020-07-20 10:34 | disposition home or self-care (01) | LOC: LAB 10:33 | PROVIDERS: ATTEND Midwife | DX: O20.0 Threatened abortion (principal) | CPT/HCPCS: 36415; 84144; 84702 ==

== ENCOUNTER 2020-08-06 12:44 | Outpatient (CLI) | payer BC ==
--- NOTE | 2020-08-06 16:19 | Ultrasound Report ---
PROCEDURE: OB First Trimester w/TV INDICATIONS: POSITIVE MILDRED, SPOTTING OUTSIDE/PRIOR DATING DATA: Last menstrual period (LMP): 05/04/2020. LMP-based estimated date of delivery (JANELLE): 03/11/2021. First dating scan (date and location): 08/06/2020. Estimated date of delivery (JANELLE) from first dating scan: Not applicable. TECHNIQUE: Real-time scanning was performed of the fetus and maternal pelvic organs, with image documentation. Endovaginal scanning was also performed to better visualize the fetus and maternal ovaries. COMPARISON: None FINDINGS: Embryo: There is no visualized intrauterine or extrauterine Measurement variability in dating: +/- 4 weeks by LMP, +/- 7 days by mean sac diameter (use before 6 weeks gestation if crown-rump length not able to be measured), +/- 5 days by crown-rump length (6-12 weeks gestation). Maternal organs: Ovaries demonstrate a 6 mm focus of hypoechogenicity in the right ovary suggestive of cyst.. Nabothian cyst is noted. Uterus is unremarkable. IMPRESSION: 1. No visualized intrauterine or extrauterine . Recommend correlation of beta hCG levels and continued interval ultrasound imaging follow-up as indicated. Reviewed by: Essence Gay MD on 08/06/2020 4:17 PM PST Approved by: Essence Gay MD on 08/06/2020 4:17 PM PST Station ID: [id number]
== END 2020-08-06 12:45 | disposition home or self-care (01) ==
LOC: DI 12:44
PROVIDERS: ATTEND Midwife
DX: Z32.01 Encounter for pregnancy test, result positive (principal)

== ENCOUNTER 2020-09-11 13:12 | Outpatient (CLI) | payer BC ==
--- NOTE | 2020-09-11 14:06 | Ultrasound Report ---
PROCEDURE: Head or Neck Soft Tissue INDICATIONS: MULTIPLE THYROID NODULES TECHNIQUE: Real time scanning was performed of the neck region of interest, with image documentation . COMPARISON: 09/01/2017 FINDINGS: No soft tissue neck abnormality seen bilaterally Right thyroid measures 46 mm x 17 mm x 17 mm. Isthmus measures 4 mm. Left thyroid measures 47 mm x 13 mm x 19 mm. Right mid posterior thyroid nodule is present, measuring 13 mm, which demonstrates solid composition. Echogenicity is hypoechoic. Smooth margins are present. No echogenic foci. Nodule is wider than tall . Previously seen right inferior thyroid nodule was not seen on the current examination. IMPRESSION: 1. Right mid thyroid nodule has increased in size. Continued follow-up is recommended, beginning in o ne year. Reviewed by: Clare Bhakta MD on 09/11/2020 1:05 PM [facility] Approved by: Clare Bhakta MD on 09/11/2020 1:05 PM [facility] Station ID: [id number]
== END 2020-09-11 13:13 | disposition home or self-care (01) ==
LOC: DI 13:12
PROVIDERS: ATTEND Family Medicine
DX: E04.2 Nontoxic multinodular goiter (principal)

== ENCOUNTER 2020-10-13 16:44 | Outpatient (CLI) | payer BC | END 2020-10-13 16:45 | disposition home or self-care (01) | LOC: LAB 16:44 | PROVIDERS: ATTEND Family Medicine | DX: E04.2 Nontoxic multinodular goiter (principal) | CPT/HCPCS: 36415; 84443 ==

== ENCOUNTER 2020-10-22 17:05 | Outpatient (CLI) | payer BC | END 2020-10-22 17:06 | disposition home or self-care (01) | LOC: LAB 17:05 | PROVIDERS: ATTEND Midwife | DX: O20.0 Threatened abortion (principal) | CPT/HCPCS: 36415; 84144; 84702 ==

== ENCOUNTER 2020-10-24 15:12 | Outpatient (CLI) | payer BC | END 2020-10-24 15:13 | disposition home or self-care (01) | LOC: LAB 15:12 | PROVIDERS: ATTEND Midwife | DX: O20.0 Threatened abortion (principal) | CPT/HCPCS: 36415; 84144; 84702 ==

== ENCOUNTER 2020-10-27 16:55 | Outpatient (CLI) | payer BC | END 2020-10-27 16:56 | disposition home or self-care (01) | LOC: LAB 16:55 | PROVIDERS: ATTEND Midwife | DX: O20.0 Threatened abortion (principal) | CPT/HCPCS: 36415; 84144; 84702 ==

== ENCOUNTER 2020-11-01 16:54 | Outpatient (CLI) | payer BC | END 2020-11-01 16:55 | disposition home or self-care (01) | LOC: LAB 16:54 | PROVIDERS: ATTEND Midwife | DX: O20.0 Threatened abortion (principal) | CPT/HCPCS: 36415; 84144; 84702 ==

== ENCOUNTER 2020-11-02 14:25 | Emergency (ER) | payer BC ==
[2020-11-02 14:52] LABS: BASOPHILS % (AUTO) 0.4 %; EOSINOPHILS # (AUTO) 0.2 10^3/uL (0.0-0.7); EOSINOPHILS % (AUTO) 2.9 %; HCT - HEMATOCRIT 41.3 % (37.0-47.0); HGB - HEMOGLOBIN 14.1 g/dL (12.0-16.0); LYMPHOCYTES # (AUTO) 2.5 10^3/uL (1.5-3.5); LYMPHOCYTES % (AUTO) 30.9 %; MEAN CORPUSCULAR HEMOGLOBIN 33.4 pg (27.0-31.0); MEAN CORPUSCULAR HGB CONC 34.1 g/dL (32.0-36.0); MEAN CORPUSCULAR VOLUME 97.9 fL (81.0-99.0); MEAN PLATELET VOLUME 9.2 fL (7.9-10.8); MONOCYTES # (AUTO) 0.7 10^3/uL (0.0-1.0); NEUTROPHILS # (AUTO) 4.7 10^3/uL (1.5-6.6); NEUTROPHILS % (AUTO) 57.7 %; PLT - PLATELET COUNT 269 10^3/uL (130-450); RED BLOOD COUNT 4.22 10^6/uL (4.20-5.40); WHITE BLOOD COUNT 8.2 x10^3/uL (4.8-10.8)
[2020-11-02 15:09] LABS: ALBUMIN 4.6 g/dL (3.2-5.5); ALBUMIN/GLOBULIN RATIO 1.6 (1.0-2.2); BILIRUBIN,TOTAL 0.7 mg/dL (0.2-1.0); CALCIUM 9.4 mg/dL (8.5-10.3); CREATININE 0.5 mg/dL (0.4-1.0); POTASSIUM 3.7 mmol/L (3.5-5.0); TOTAL PROTEIN 7.5 g/dL (6.7-8.2)
--- NOTE | 2020-11-02 15:09 | ED Physician Documentation ---
PD HPI MALE - Stated complaint Stated Complaint: F /LOWER ABD PX - Chief complaint Chief Complaint: Abd Pain - History obtained from History obtained from: Patient - History of Present Illness Timing - onset: Today Timing - duration: Days (1) Timing - details: Gradual onset Pain level max: 7 Pain level now: 7 Associated symptoms: No: Dysuria, Urinary frequency, Unable to urinate, Hematuria, Discharge - Additional information Additional information: Patient is a 29-year-old female, 13 para 1 who presents to the emergency department right-sided pelvic pain today and vaginal spotting. She states similar to prior ectopic when she was in her late teens. Nothing makes it better. Worse with palpation. She states that she has not had a significant work-up for her miscarriages. She states that she was told it was due to low progesterone in a prior . States her progesterone has been normal in this . Review of Systems Ten Systems: 10 systems reviewed and negative Constitutional: denies: Fever, Chills Nose: denies: Rhinorrhea / runny nose, Congestion Respiratory: denies: Cough GI: denies: Vomiting, Diarrhea Skin: denies: Rash Musculoskeletal: denies: Neck pain, Back pain Neurologic: denies: Headache PD PAST MEDICAL HISTORY - Past Medical History Cardiovascular: None Respiratory: None Neuro: None Endocrine/Autoimmune: None Psych: Depression, Anxiety - Past Surgical History Past Surgical History: Yes - Present Medications Home Medications: Ambulatory Orders Medication Instructions Recorded Confirmed Pnv No.95/Ferrous Fum/Folic AC 1 tab ORAL DAILY 11/02/20 11/02/20 [ Tablet] - Allergies Allergies/Adverse Reactions: Allergies Allergy/AdvReac Type Severity Reaction Status Date / Time bupropion [From Wellbutrin] AdvReac Anxiety Verified 11/02/20 14:30 - Social History Does the pt smoke?: Yes Smoking Status: Current every day smoker Does the pt drink ETOH?: Yes Does the pt have substance abuse?: Yes - Immunizations Immunizations are current?: Yes PD ED PE NORMAL - Vitals Vital signs reviewed: Yes - General General: Alert and oriented X 3, No acute distress - HEENT HEENT: Moist mucous membranes - Neck Neck: Supple, no meningeal sign - Cardiac Cardiac: RRR - Respiratory Respiratory: No respiratory distress, Clear bilaterally - Abdomen Abdomen: Soft, Non distended, Other (Mild tender to palpation right lower quadrant, right pelvic. No peritoneal signs) - Back Back: No CVA TTP, No spinal TTP - Derm Derm: Warm and dry - Neuro Neuro: Alert and oriented X 3 - Psych Psych: Normal mood, Normal affect Results - Vitals Vitals: Vital Signs - 24 hr 11/02/20 11/02/20 11/02/20 14:31 16:37 18:00 Temperature 36.6 C Heart Rate 94 90 87 Respiratory 18 17 18 Rate Blood Pressure 131/81 H 109/53 L 122/75 O2 Saturation 100 100 99 11/02/20 19:29 Temperature 37.2 C Heart Rate 80 Respiratory 16 Rate Blood Pressure 118/83 H O2 Saturation 100 Oxygen O2 Source Room air - Labs Labs: Laboratory Tests 11/02/20 11/02/20 11/02/20 14:47 14:47 14:47 WBC 8.2 RBC 4.22 Hgb 14.1 Hct 41.3 MCV 97.9 MCH 33.4 H MCHC 34.1 RDW 12.0 Plt Count 269 MPV 9.2 Neut # (Auto) 4.7 Lymph # (Auto) 2.5 [place] # (Auto) 0.7 Eos # (Auto) 0.2 Baso # (Auto) 0.0 Absolute Nucleated RBC 0.00 Nucleated RBC % 0.0 Sodium 136 Potassium 3.7 Chloride 104 Carbon Dioxide 22 Anion Gap 10.0 BUN 9 Creatinine 0.5 Estimated GFR (MDRD) 145 Glucose 91 Calcium 9.4 Total Bilirubin 0.7 AST 18 ALT 23 Alkaline Phosphatase 41 L Total Protein 7.5 Albumin 4.6 Globulin 2.9 Albumin/Globulin Ratio 1.6 Lipase 20 L TSH HCG, Quant 1981.00 Urine Color Urine Clarity Urine pH Ur Specific [place] Urine Protein Urine Glucose (UA) Urine Ketones Urine Occult Blood Urine Nitrite Urine Bilirubin Urine Urobilinogen Ur Leukocyte Esterase Urine RBC Urine WBC Ur Squamous Epith Cells Urine Bacteria Ur Microscopic Review Urine Culture Comments 11/02/20 11/02/20 14:47 14:48 WBC RBC Hgb Hct MCV MCH MCHC RDW Plt Count MPV Neut # (Auto) Lymph # (Auto) [place] # (Auto) Eos # (Auto) Baso # (Auto) Absolute Nucleated RBC Nucleated RBC % Sodium Potassium Chloride Carbon Dioxide Anion Gap BUN Creatinine Estimated GFR (MDRD) Glucose Calcium Total Bilirubin AST ALT Alkaline Phosphatase Total Protein Albumin Globulin Albumin/Globulin Ratio Lipase TSH 2.32 HCG, Quant Urine Color YELLOW Urine Clarity CLEAR Urine pH 6.0 Ur Specific [place] 1.010 Urine Protein NEGATIVE Urine Glucose (UA) NEGATIVE Urine Ketones 15 H Urine Occult Blood LARGE H Urine Nitrite NEGATIVE Urine Bilirubin NEGATIVE Urine Urobilinogen 0.2 (NORMAL) Ur Leukocyte Esterase NEGATIVE Urine RBC 6-10 H Urine WBC 0-3 Ur Squamous Epith Cells RARE Squamous Urine Bacteria None Seen Ur Microscopic Review INDICATED Urine Culture Comments NOT INDICATED - Rads (name of study) OB ultrasound first trimester Radiology: Prelim report reviewed, EMP read contemporaneously, See rad report PD MEDICAL DECISION MAKING - ED course Complexity details: reviewed results, re-evaluated patient, considered differential, d/w patient, d/w production support consultant ED course: 29-year-old female with what appears to be a ectopic . Her hCG has decreased since her last hCG draw from [id number]. Discussed the case with OB on-call, Dr. Washington who came and evaluated the patient. Patient was given methotrexate. Patient counseled regarding the risks of ruptured ectopic. 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 Patient will follow up closely with Dr. Washington in the clinic to trend hCGs and to follow-up on the results of the miscarriage work-up. Patient counseled regarding signs and symptoms for which I believe and urgent re-evaluation would be necessary. Patient with good understanding of and agreement to plan and is comfortable going home at this time This document was made in part using voice recognition software. While efforts are made to proofread this document, sound alike and grammatical errors may occur. IMPRESSION: 1. No visualized intrauterine . 2. Complex appearance of the right ovary/adnexal region. No heart tones are identified. However, given history of and lack of intrauterine gestational sac visualization, ectopic cannot be excluded. Recommend correlation of beta hCG levels as well as short interval imaging follow-up and OB consult. Departure - Departure Disposition: 01 Home, Self Care Clinical Impression: Ectopic Qualifiers: Location of ectopic : tubal Intrauterine status: without intrauterine Laterality: right Qualified Code(s): O00.101 - Right tubal without intrauterine Condition: Stable Instructions: ED Preg Ectopic Methotrexate Tx Follow-Up: Rahel Washington MD [Provider Admit Priv/Credential] - Within 3 Days Comments: You need a repeat HCG day 4, 7 and then every 3 days for 1 week. You need to follow up with Dr. Jacobo for further care. You were given methotrexate tonight. Return if you worsen. Stop your vitamins as well. You appear to have an ectopic tonight. We sent blood work for your miscarriage workup tonight as well. Follow up with Dr. Jacobo for these results. Discharge Date/Time: 11/02/20 19:29
[2020-11-02 15:57] LABS: BILIRUBIN,URINE NEGATIVE (NEGATIVE); GLUCOSE, URINE (UA) NEGATIVE (NEGATIVE); KETONES,URINE (UA) 15 mg/dL (NEGATIVE); LEUKOCYTE ESTERASE, URINE NEGATIVE (NEGATIVE); NITRITE,URINE NEGATIVE (NEGATIVE); OCCULT BLOOD,URINE LARGE (NEGATIVE); PROTEIN,URINE NEGATIVE (NEGATIVE); UROBILINOGEN,URINE 0.2 (NORMAL) E.U./dL (NORMAL)
[2020-11-02 15:58] LABS: CLARITY,URINE CLEAR (CLEAR)
[2020-11-02 16:19] LABS: BACTERIA,URINE None Seen /HPF (None Seen); SQUAMOUS EPITHELIAL CELL,UR RARE Squamous (<= Few); WBC,URINE 0-3 /HPF (0-5)
--- NOTE | 2020-11-02 18:33 | Ultrasound Report ---
PROCEDURE: OB First Trimester w/TV INDICATIONS: preg vag bleed, h/o ectopic OUTSIDE/PRIOR DATING DATA: Last menstrual period (LMP): Unknown. LMP-based estimated date of delivery (JANELLE): Unknown. First dating scan (date and location): 11/02/2020. Estimated date of delivery (JANELLE) from first dating scan: Not applicable. TECHNIQUE: Real-time scanning was performed of the fetus and maternal pelvic organs, with image documentation. Endovaginal scanning was also performed to better visualize the fetus and maternal ovaries. COMPARISON: None FINDINGS: Embryo: There is no visualized intrauterine gestational sac. Measurement variability in dating: +/- 4 weeks by LMP, +/- 7 days by mean sac diameter (use before 6 weeks gestation if crown-rump length not able to be measured), +/- 5 days by crown-rump length (6-12 weeks gestation). Maternal organs: There is a complex appearance of the right ovary/adnexa region. No heart tone s are identified. Left ovary and adnexal regions are unremarkable. No free fluid. IMPRESSION: 1. No visualized intrauterine . 2. Complex appearance of the right ovary/adnexal region. No heart tones are identified. However , given history of and lack of intrauterine gestational sac visualization, ectopic cannot b e excluded. Recommend correlation of beta hCG levels as well as short interval imaging follow-up and OB consult. Reviewed by: Essence Gay MD on 11/02/2020 6:31 PM PDT Approved by: Essence Gay MD on 11/02/2020 6:31 PM PDT Station ID: [id number]
[2020-11-02] MEDS ORDERED: METHOTREXATE 50 MG/2 ML MDV IM STA (19:01)
[2020-11-02 19:29] VITALS: BP 118/83
--- NOTE | 2020-11-03 07:53 | CONSULTATION NOTE ---
Referring Provider Name of Referring Provider:: Segundo Fuentes Consult Date: 11/02/20 History - Past Medical History Cardiovascular: reports: None Respiratory: reports: None Neuro: reports: None Endocrine/Autoimmune: reports: None Psych: reports: Depression, Anxiety MRSA Hx?: No - POLST Patient has POLST: No Meds/Allgy - Home Medications Home Medications: Ambulatory Orders Medication Instructions Recorded Confirmed Pnv No.95/Ferrous Fum/Folic AC 1 tab ORAL DAILY 11/02/20 11/02/20 [ Tablet] - Allergies Allergies/Adverse Reactions: Allergies Allergy/AdvReac Type Severity Reaction Status Date / Time bupropion [From Wellbutrin] AdvReac Anxiety Verified 11/02/20 14:30 Conclusion/Plan - Lab Results Fish Bones: 11/02/20 14:47 11/02/20 14:47
[2020-11-12 07:55] LABS: B2 GLYCOPROTEIN I IGG AB <9
[2020-11-12 07:56] LABS: B2 GLYCOPROTEIN I IGA AB <9; B2 GLYCOPROTEIN I IGM AB <9
== END 2020-11-02 19:29 | disposition home or self-care (01) ==
LOC: ED 14:25
DX: O00.101 Right tubal pregnancy without intrauterine pregnancy (principal); O09.10 Supervision of pregnancy with history of ectopic pregnancy, unspecified trimester; O99.330 Smoking (tobacco) complicating pregnancy, unspecified trimester; O99.310 Alcohol use complicating pregnancy, unspecified trimester; F17.210 Nicotine dependence, cigarettes, uncomplicated; Z3A.00 Weeks of gestation of pregnancy not specified
CPT/HCPCS: 36415; 76801; 76817; 80053; 81001; 81241; 83690; 84443; 84702; 85025; 85613; 85730; 86146; 86147; 96372; 99284; J9250; 81003; 81599; 86900; 86901; 87086

== ENCOUNTER 2020-11-07 14:25 | Outpatient (CLI) | payer BC | END 2020-11-07 14:26 | disposition home or self-care (01) | LOC: LAB 14:25 | PROVIDERS: ATTEND Obstetrics & Gynecology | DX: N96 Recurrent pregnancy loss (principal); Z87.59 Personal history of other complications of pregnancy, childbirth and the puerperium | CPT/HCPCS: 36415; 81240; 81599; 84702; 85613; 85730; 86146; 86147; 88230; 88262 ==

== ENCOUNTER 2020-11-13 16:18 | Outpatient (CLI) | payer BC | END 2020-11-13 16:19 | disposition home or self-care (01) | LOC: LAB 16:18 | PROVIDERS: ATTEND Obstetrics & Gynecology | DX: Z87.59 Personal history of other complications of pregnancy, childbirth and the puerperium (principal) | CPT/HCPCS: 36415; 81599; 84702; 86850; 86900; 86901 ==

== ENCOUNTER 2020-12-08 16:42 | Outpatient (CLI) | payer BC | END 2020-12-08 16:43 | disposition home or self-care (01) | LOC: LAB 16:42 | PROVIDERS: ATTEND Midwife | DX: O20.0 Threatened abortion (principal) | CPT/HCPCS: 36415; 84144; 84702 ==

== ENCOUNTER 2021-01-13 08:00 | Outpatient (CLI) | payer BC ==
[2021-01-13 20:49] LABS: BASOPHILS % (AUTO) 0.3 %; EOSINOPHILS # (AUTO) 0.4 10^3/uL (0.0-0.7); EOSINOPHILS % (AUTO) 4.6 %; LYMPHOCYTES # (AUTO) 2.5 10^3/uL (1.5-3.5); LYMPHOCYTES % (AUTO) 31.5 %; MEAN CORPUSCULAR HEMOGLOBIN 33.3 pg (27.0-31.0); MEAN CORPUSCULAR HGB CONC 33.3 g/dL (32.0-36.0); MEAN CORPUSCULAR VOLUME 99.8 fL (81.0-99.0); MEAN PLATELET VOLUME 10.5 fL (7.9-10.8); MONOCYTES # (AUTO) 0.7 10^3/uL (0.0-1.0); MONOCYTES % (AUTO) 8.8 %; NEUTROPHILS # (AUTO) 4.4 10^3/uL (1.5-6.6); NEUTROPHILS % (AUTO) 54.5 %; PLT - PLATELET COUNT 287 10^3/uL (130-450); RED BLOOD COUNT 4.51 10^6/uL (4.20-5.40); RED CELL DISTRIBUTION WIDTH 12.5 % (12.0-15.0)
[2021-01-13 21:08] LABS: ALBUMIN 4.4 g/dL (3.2-5.5); ALBUMIN/GLOBULIN RATIO 1.6 (1.0-2.2); BILIRUBIN,TOTAL 0.5 mg/dL (0.2-1.0); CALCIUM 9.3 mg/dL (8.5-10.3); CREATININE 0.5 mg/dL (0.4-1.0); POTASSIUM 3.8 mmol/L (3.5-5.0); TOTAL PROTEIN 7.1 g/dL (6.7-8.2)
== END 2021-01-13 23:59 ==
LOC: LAB.N 08:00
PROVIDERS: ATTEND Physician Assistant Medical
DX: R10.13 Epigastric pain (principal)
CPT/HCPCS: 36415; 80053; 83690; 85025

== ENCOUNTER 2021-02-23 14:28 | Emergency (ER) | payer BC ==
[2021-02-23 14:37] VITALS: BP 128/80
[2021-02-23 14:55] LABS: BASOPHILS % (AUTO) 0.3 %; EOSINOPHILS # (AUTO) 0.4 10^3/uL (0.0-0.7); HCT - HEMATOCRIT 42.6 % (37.0-47.0); HGB - HEMOGLOBIN 14.6 g/dL (12.0-16.0); LYMPHOCYTES # (AUTO) 2.4 10^3/uL (1.5-3.5); LYMPHOCYTES % (AUTO) 30.1 %; MEAN CORPUSCULAR HEMOGLOBIN 33.5 pg (27.0-31.0); MEAN CORPUSCULAR HGB CONC 34.3 g/dL (32.0-36.0); MEAN CORPUSCULAR VOLUME 97.7 fL (81.0-99.0); MEAN PLATELET VOLUME 9.3 fL (7.9-10.8); MONOCYTES # (AUTO) 0.7 10^3/uL (0.0-1.0); MONOCYTES % (AUTO) 8.2 %; NEUTROPHILS # (AUTO) 4.5 10^3/uL (1.5-6.6); NEUTROPHILS % (AUTO) 56.1 %; PLT - PLATELET COUNT 206 10^3/uL (130-450); RED BLOOD COUNT 4.36 10^6/uL (4.20-5.40); WHITE BLOOD COUNT 7.9 x10^3/uL (4.8-10.8)
[2021-02-23 15:16] LABS: ALBUMIN 4.1 g/dL (3.2-5.5); ALBUMIN/GLOBULIN RATIO 1.6 (1.0-2.2); BILIRUBIN,TOTAL 0.4 mg/dL (0.2-1.0); CREATININE 0.7 mg/dL (0.4-1.0); POTASSIUM 3.9 mmol/L (3.5-5.0); TOTAL PROTEIN 6.7 g/dL (6.7-8.2)
--- NOTE | 2021-02-23 16:18 | Ultrasound Report ---
PROCEDURE: OB First Trimester w/TV INDICATIONS: R pelvic pain, 3-4 weeks preg OUTSIDE/PRIOR DATING DATA: Last menstrual period (LMP): 01/31/2021. LMP-based estimated date of delivery (JANELLE): 11/07/2021. First dating scan (date and location): 02/23/2021 Estimated date of delivery (JANELLE) from first dating scan: Not applicable. TECHNIQUE: Real-time scanning was performed of the fetus and maternal pelvic organs, with image documentation. Endovaginal scanning was also performed to better visualize the fetus and maternal ovaries. COMPARISON: OB ultrasound 11/02/2020 FINDINGS: There is no visualized intrauterine or extrauterine identified. Simple cystic structure is noted within the cervix. There is no free fluid within the visualized pelvis. IMPRESSION: 1. No definitively identified intra or extrauterine . No free fluid. 2. Simple cystic structure noted within the cervix suspected to represent a prominent nabothian cyst. However, an ectopic blighted oval cannot be definitively excluded and recommend short interval imagi ng follow-up with correlation to beta hCG levels. Reviewed by: Essence Gay MD on 02/23/2021 4:17 PM PDT Approved by: Essence Gay MD on 02/23/2021 4:17 PM PDT Station ID: [id number]
--- NOTE | 2021-02-23 16:19 | ED Physician Documentation ---
History of Present Illness - Stated complaint Stated Complaint: RT SIDE PX/OB - Chief complaint Chief Complaint: Abd Pain - History obtained from History obtained from: Patient - History of Present Illness Timing: Today Pain level max: 2 Pain level now: 2 - Additonal information Additional information: Patient is a 30-year-old female who presents to the emergency department stating she is recently and is having right-sided pelvic pain, mild. Recently had an ectopic and would like to be evaluated for potential ectopic. Nothing makes it better or worse. No fevers. No chills. No vaginal bleeding or discharge. Review of Systems Constitutional: denies: Fever, Chills GI: denies: Vomiting, Diarrhea Musculoskeletal: denies: Neck pain, Back pain Neurologic: denies: Headache PD PAST MEDICAL HISTORY - Past Medical History Cardiovascular: None Respiratory: None Neuro: None Endocrine/Autoimmune: None Psych: Depression, Anxiety - Past Surgical History Past Surgical History: Yes - Present Medications Home Medications: Ambulatory Orders Medication Instructions Recorded Confirmed Pnv No.95/Ferrous Fum/Folic AC 1 tab ORAL DAILY 11/02/20 11/02/20 [ Tablet] - Allergies Allergies/Adverse Reactions: Allergies Allergy/AdvReac Type Severity Reaction Status Date / Time bupropion [From Wellbutrin] AdvReac Anxiety Verified 02/23/21 14:37 - Social History Does the pt smoke?: Yes Smoking Status: Current every day smoker Does the pt drink ETOH?: Yes Does the pt have substance abuse?: Yes - Immunizations Immunizations are current?: Yes - POLST Patient has POLST: No PD ED PE NORMAL - Vitals Vital signs reviewed: Yes - General General: Alert and oriented X 3, No acute distress, Well developed/nourished - HEENT HEENT: PERRL, Moist mucous membranes - Neck Neck: Supple, no meningeal sign - Cardiac Cardiac: RRR, Strong equal pulses - Respiratory Respiratory: No respiratory distress, Clear bilaterally - Abdomen Abdomen: Soft, Non tender, Non distended - Back Back: No CVA TTP, No spinal TTP - Derm Derm: Warm and dry - Extremities Extremities: No edema, No calf tenderness / cord - Neuro Neuro: Alert and oriented X 3 - Psych Psych: Normal mood, Normal affect Results - Vitals Vitals: Vital Signs - 24 hr 02/23/21 14:34 Temperature 36.8 C Heart Rate 97 Respiratory 14 Rate Blood Pressure 128/80 O2 Saturation 99 Oxygen O2 Source Room air - Labs Labs: Laboratory Tests 02/23/21 02/23/21 02/23/21 14:51 14:51 14:51 WBC 7.9 RBC 4.36 Hgb 14.6 Hct 42.6 MCV 97.7 MCH 33.5 H MCHC 34.3 RDW 12.0 Plt Count 206 MPV 9.3 Neut # (Auto) 4.5 Lymph # (Auto) 2.4 [place] # (Auto) 0.7 Eos # (Auto) 0.4 Baso # (Auto) 0.0 Absolute Nucleated RBC 0.00 Nucleated RBC % 0.0 Sodium 136 Potassium 3.9 Chloride 106 Carbon Dioxide 21 Anion Gap 9.0 BUN 13 Creatinine 0.7 Estimated GFR (MDRD) 98 Glucose 112 H Calcium 9.0 Total Bilirubin 0.4 AST 13 ALT 14 Alkaline Phosphatase 58 Total Protein 6.7 Albumin 4.1 Globulin 2.6 Albumin/Globulin Ratio 1.6 Lipase 32 HCG, Quant 144.05 Urine Color Urine Clarity Urine pH Ur Specific [place] Urine Protein Urine Glucose (UA) Urine Ketones Urine Occult Blood Urine Nitrite Urine Bilirubin Urine Urobilinogen Ur Leukocyte Esterase Ur Microscopic Review Urine Culture Comments 02/23/21 16:20 WBC RBC Hgb Hct MCV MCH MCHC RDW Plt Count MPV Neut # (Auto) Lymph # (Auto) [place] # (Auto) Eos # (Auto) Baso # (Auto) Absolute Nucleated RBC Nucleated RBC % Sodium Potassium Chloride Carbon Dioxide Anion Gap BUN Creatinine Estimated GFR (MDRD) Glucose Calcium Total Bilirubin AST ALT Alkaline Phosphatase Total Protein Albumin Globulin Albumin/Globulin Ratio Lipase HCG, Quant Urine Color YELLOW Urine Clarity CLEAR Urine pH 7.5 Ur Specific [place] 1.020 Urine Protein NEGATIVE Urine Glucose (UA) NEGATIVE Urine Ketones NEGATIVE Urine Occult Blood NEGATIVE Urine Nitrite NEGATIVE Urine Bilirubin NEGATIVE Urine Urobilinogen 0.2 (NORMAL) Ur Leukocyte Esterase NEGATIVE Ur Microscopic Review NOT INDICATED Urine Culture Comments NOT INDICATED - Rads (name of study) OB US Radiology: Final report received, EMP read contemporaneously, See rad report PD MEDICAL DECISION MAKING - ED course Complexity details: reviewed results, re-evaluated patient, considered differential, d/w patient ED course: 30-year-old female with right pelvic pain. Positive test. hCG is only 144. We will have her follow-up with OB for repeat evaluation. No evidence of ectopic at this time. Ectopic precautions given at bedside. Patient counseled regarding signs and symptoms for which I believe and urgent re- evaluation would be necessary. Patient with good understanding of and agreement to plan and is comfortable going home at this time This document was made in part using voice recognition software. While efforts are made to proofread this document, sound alike and grammatical errors may occur. 1. No definitively identified intra or extrauterine . No free fluid. 2. Simple cystic structure noted within the cervix suspected to represent a prominent nabothian cyst. However, an ectopic blighted oval cannot be definitively excluded and recommend short interval imaging follow-up with correlation to beta hCG levels. Departure - Departure Disposition: 01 Home, Self Care Clinical Impression: Pelvic pain affecting in first trimester, antepartum Condition: Good Instructions: ED Abdominal Pain Rule Out Ectopic Follow-Up: Rahel Washington MD [Provider Admit Priv/Credential] - Tomorrow Comments: Your testing does not show any acute abnormality today. Your hCG is 144. You will need a repeat hCG with OB. Please discuss tomorrow at your appointment when they would like to redraw this. Return if you worsen. IMPRESSION: 1. No definitively identified intra or extrauterine . No free fluid. 2. Simple cystic structure noted within the cervix suspected to represent a prominent nabothian cyst. However, an ectopic blighted ovum cannot be definitively excluded and recommend short interval imaging follow-up with correlation to beta hCG levels. Discharge Date/Time: 02/23/21 16:46
[2021-02-23 16:28] LABS: BILIRUBIN,URINE NEGATIVE (NEGATIVE); CLARITY,URINE CLEAR (CLEAR); GLUCOSE, URINE (UA) NEGATIVE (NEGATIVE); KETONES,URINE (UA) NEGATIVE (NEGATIVE); LEUKOCYTE ESTERASE, URINE NEGATIVE (NEGATIVE); NITRITE,URINE NEGATIVE (NEGATIVE); OCCULT BLOOD,URINE NEGATIVE (NEGATIVE); PH,URINE 7.5 PH (5.0-7.5); PROTEIN,URINE NEGATIVE (NEGATIVE); UROBILINOGEN,URINE 0.2 (NORMAL) E.U./dL (NORMAL)
== END 2021-02-23 16:46 | disposition home or self-care (01) ==
LOC: ED 14:28
DX: O26.891 Other specified pregnancy related conditions, first trimester (principal); R10.2 Pelvic and perineal pain; O09.11 Supervision of pregnancy with history of ectopic pregnancy, first trimester; O99.331 Smoking (tobacco) complicating pregnancy, first trimester; F17.200 Nicotine dependence, unspecified, uncomplicated; Z3A.00 Weeks of gestation of pregnancy not specified
CPT/HCPCS: 36415; 80053; 81001; 81003; 83690; 84702; 85025; 87086; 99284

== ENCOUNTER 2021-02-28 16:58 | Outpatient (CLI) | payer BC | END 2021-02-28 16:59 | disposition home or self-care (01) | LOC: LAB 16:58 | PROVIDERS: ATTEND Obstetrics & Gynecology | DX: Z32.01 Encounter for pregnancy test, result positive (principal); Z87.59 Personal history of other complications of pregnancy, childbirth and the puerperium | CPT/HCPCS: 36415; 84702 ==

== ENCOUNTER 2021-03-03 16:58 | Outpatient (CLI) | payer BC | END 2021-03-03 16:59 | disposition home or self-care (01) | LOC: LAB 16:58 | PROVIDERS: ATTEND Obstetrics & Gynecology | DX: Z32.01 Encounter for pregnancy test, result positive (principal); Z87.59 Personal history of other complications of pregnancy, childbirth and the puerperium | CPT/HCPCS: 36415; 84702 ==

== ENCOUNTER 2021-03-06 15:54 | Outpatient (CLI) | payer BC | END 2021-03-06 15:55 | disposition home or self-care (01) | LOC: LAB 15:54 | PROVIDERS: ATTEND Obstetrics & Gynecology | DX: Z32.01 Encounter for pregnancy test, result positive (principal); Z87.59 Personal history of other complications of pregnancy, childbirth and the puerperium | CPT/HCPCS: 36415; 84702 ==

== ENCOUNTER 2021-03-07 19:47 | Outpatient (CLI) | payer BC ==
--- NOTE | 2021-03-07 20:47 | Ultrasound Report ---
PROCEDURE: OB First Trimester w/TV INDICATIONS: + PREG TEST OUTSIDE/PRIOR DATING DATA: Last menstrual period (LMP): 01/31/2021. LMP-based estimated date of delivery (JANELLE): 11/07/2021. TECHNIQUE: Real-time scanning was performed of the fetus and maternal pelvic organs, with image documentation. Endovaginal scanning was also performed to better visualize the fetus and maternal ovaries. COMPARISON: 02/23/2021 FINDINGS: Embryo: Mean gestational sac diameter is 1.19 cm. 6 weeks 0 days. A yolk sac is identified. A questi onable pole is seen with a crown-rump length is 2.8 mm. 5 weeks 6 days. A subchorionic bleed is present measuring 1.2 x 0.3 x 0.9 cm. Heart rate: Not detected Measurement variability in dating: +/- 4 weeks by LMP, +/- 7 days by mean sac diameter (use before 6 weeks gestation if crown-rump length not able to be measured), +/- 5 days by crown-rump length (6-12 weeks gestation). IMPRESSION: Intrauterine with a yolk sac but no definite pole. No heart rate at this time. Reviewed by: Jhonatan Samuel on 03/07/2021 8:46 PM PDT Approved by: Jhonatan Samuel on 03/07/2021 8:46 PM PDT Station ID: [id number]
== END 2021-03-07 19:48 | disposition home or self-care (01) ==
LOC: DI 19:47
PROVIDERS: ATTEND Obstetrics & Gynecology
DX: Z32.01 Encounter for pregnancy test, result positive (principal)

== ENCOUNTER 2021-03-09 16:40 | Outpatient (CLI) | payer BC | END 2021-03-09 16:41 | disposition home or self-care (01) | LOC: LAB 16:40 | PROVIDERS: ATTEND Obstetrics & Gynecology | DX: Z32.01 Encounter for pregnancy test, result positive (principal); Z87.59 Personal history of other complications of pregnancy, childbirth and the puerperium; N96 Recurrent pregnancy loss | CPT/HCPCS: 36415; 81599; 84702; 85613; 85730 ==

== ENCOUNTER 2021-03-18 16:42 | Outpatient (CLI) | payer BC ==
--- NOTE | 2021-03-18 19:37 | Ultrasound Report ---
PROCEDURE: OB First Trimester w/TV INDICATIONS: POSITIVE TEST OUTSIDE/PRIOR DATING DATA: Last menstrual period (LMP): 01/31/2021. LMP-based estimated date of delivery (JANELLE): 11/07/2021. First dating scan (date and location): 03/18/2021. Estimated date of delivery (JANELLE) from first dating scan: 11/04/2021. The below data below was generated using the ultrasound derived JANELLE of 11/04/2021 TECHNIQUE: Real-time scanning was performed of the fetus and maternal pelvic organs, with image documentation. Endovaginal scanning was also performed to better visualize the fetus and maternal ovaries. COMPARISON: 03/07/2021 FINDINGS: Embryo: Products of conception including a yolk sac, pole, and unfused amnion are visible with in an intrauterine gestational sac. Average pole crown-rump length is 1.0 cm corresponding to a 7 week 0 day +/- 4 day gestation. Mean gestational sac diameter is 2.49 cm corresponding to a 7 week 4 day gestation. Heart rate: 133 bpm Measurement variability in dating: +/- 4 weeks by LMP, +/- 7 days by mean sac diameter (use before 6 weeks gestation if crown-rump length not able to be measured), +/- 5 days by crown-rump length (6-12 weeks gestation). Maternal organs: Maternal cervix is closed and contains a nabothian cyst. There is trace implantation bleed along the caudal aspect of the gestational sac encompassing less than 10% of the sac circumfer ence. Maternal ovaries are normal. There is a probable right corpus luteum. IMPRESSION: 1. Single viable intrauterine with a gestational age of 7 weeks 0 days by today's measureme nts. This corresponds to an estimated due date of 11/04/2021. Reviewed by: Jessica Gray MD on 03/18/2021 7:36 PM PDT Approved by: Jessica Gray MD on 03/18/2021 7:36 PM PDT Station ID: [id number]
== END 2021-03-18 16:43 | disposition home or self-care (01) ==
LOC: DI 16:42
PROVIDERS: ATTEND Obstetrics & Gynecology
DX: O26.21 Pregnancy care for patient with recurrent pregnancy loss, first trimester (principal); Z3A.01 Less than 8 weeks gestation of pregnancy; Z87.59 Personal history of other complications of pregnancy, childbirth and the puerperium

== ENCOUNTER 2021-05-13 16:42 | Outpatient (CLI) | payer BC ==
[2021-05-13 17:09] LABS: BASOPHILS % (AUTO) 0.2 %; EOSINOPHILS # (AUTO) 0.4 10^3/uL (0.0-0.7); EOSINOPHILS % (AUTO) 3.7 %; HGB - HEMOGLOBIN 10.8 g/dL (12.0-16.0); LYMPHOCYTES # (AUTO) 3.1 10^3/uL (1.5-3.5); LYMPHOCYTES % (AUTO) 30.5 %; MEAN CORPUSCULAR HEMOGLOBIN 32.4 pg (27.0-31.0); MEAN CORPUSCULAR HGB CONC 33.8 g/dL (32.0-36.0); MEAN CORPUSCULAR VOLUME 96.1 fL (81.0-99.0); MEAN PLATELET VOLUME 9.4 fL (7.9-10.8); MONOCYTES # (AUTO) 0.7 10^3/uL (0.0-1.0); MONOCYTES % (AUTO) 6.8 %; NEUTROPHILS % (AUTO) 58.5 %; PLT - PLATELET COUNT 262 10^3/uL (130-450); RED BLOOD COUNT 3.33 10^6/uL (4.20-5.40); RED CELL DISTRIBUTION WIDTH 12.4 % (12.0-15.0); WHITE BLOOD COUNT 10.2 x10^3/uL (4.8-10.8)
[2021-05-14 09:06] LABS: HEPATITIS B SURFACE ANTIGEN NON-REACTIVE (NON-REACTIVE); HEPATITIS C ANTIBODY NON-REACTIVE (NON-REACTIVE)
[2021-05-14 12:11] LABS: HIV AG/AB 4TH GEN NON-REACTIVE (NON-REACTIVE)
== END 2021-05-13 16:43 | disposition home or self-care (01) ==
LOC: LAB 16:42
PROVIDERS: ATTEND Obstetrics & Gynecology
DX: Z36.89 Encounter for other specified antenatal screening (principal)
CPT/HCPCS: 36415; 85025; 86592; 86762; 86787; 86803; 86850; 86900; 86901; 87340; 87389

== ENCOUNTER 2021-05-23 15:37 | Outpatient (CLI) | payer BC ==
[2021-05-23 16:43] LABS: % IRON SATURATION 25 % (20-50); IRON 84 ug/dL (28-170); TOTAL IRON BINDING CAPACITY 340 ug/dL (250-450); TRANSFERRIN 243 mg/dL (192-382)
== END 2021-05-23 15:38 | disposition home or self-care (01) ==
LOC: LAB 15:37
PROVIDERS: ATTEND Obstetrics & Gynecology
DX: O99.019 Anemia complicating pregnancy, unspecified trimester (principal)
CPT/HCPCS: 36415; 81599; 82728; 83020; 83540; 84466; 85014; 85018; 85041

== ENCOUNTER 2021-06-20 18:55 | Outpatient (CLI) | payer BC ==
--- NOTE | 2021-06-21 13:48 | Ultrasound Report ---
PROCEDURE: OB Detailed Eval INDICATIONS: SUPERVISION OF HIGH RISK OUTSIDE/PRIOR DATING DATA: Last menstrual period (LMP): 01/31/2021. LMP-based estimated date of delivery (JANELLE): 11/07/2021. First dating scan (date and location): 03/18/2021. Estimated date of delivery (JANELLE) from first dating scan: 11/04/2021. TECHNIQUE: Real-time scanning was performed of the fetus, with image documentation and biometric measurements. Endovaginal scanning: No COMPARISON: None. FINDINGS: General: A single living intrauterine gestation is present. Presentation: Vertex Placenta: Placental position is anterior, without previa. Amniotic fluid index: 15.8 cm heart rate: 140 beats per minute. Maternal cervical canal: Free 0.5 cm long; normal length is 2.5 cm or more. biometrics: Biparietal diameter: 51 mm; 21 weeks 4 days Head circumference: 191 mm; 21 weeks 3 days Abdominal circumference: 136 mm; 21 weeks 6 days Femur length: 34 mm; 20 weeks 3 days Estimated gestational age from initial scan: 20 weeks 3 days. Composite gestational age from present scan: 21 weeks 1 day Estimated weight and percentile: 386 g, which is at the 73rd percentile for gestational age Measurement variability in biometric dating: +/- 10 days from 12-20 weeks gestation, +/- 2 weeks from 20-30 weeks gestation, +/- 3 weeks at 30 weeks gestation or later. Anatomic survey: Neuro: Ventricles are normal at less than 10 mm. Cisterna magna is normal at 3-11 mm. Cerebellum i s normal in size and morphology. Nuchal skin fold: Normal at less than 6 mm between 14 and 20 weeks gestational age. Face: Nose and lips, facial profile are normal. Spine: No evidence for spina bifida. Heart: 4-chambered heart is present, with normal ventricular outflow tracts. Diaphragm: Diaphragm is intact. Stomach: Left-sided stomach is present. Kidneys: No hydronephrosis. Normal is less than 5 mm in 2nd trimester, less than 7 mm in 3rd trimester. Cord: 3 vessel cord has orthotopic insertion. Bladder: Normal in size. Extremities: All 4 extremities are visualized. IMPRESSION: 1. Single living intrauterine gestation. 2. Normal survey of anatomy. Reviewed by: Clare Bhakta MD on 06/21/2021 1:47 PM PST Approved by: Clare Bhakta MD on 06/21/2021 1:47 PM PST Station ID: [id number]
== END 2021-06-20 18:56 | disposition home or self-care (01) ==
LOC: DI 18:55
PROVIDERS: ATTEND Obstetrics & Gynecology
DX: O09.92 Supervision of high risk pregnancy, unspecified, second trimester (principal); Z3A.21 21 weeks gestation of pregnancy

== ENCOUNTER 2021-10-11 08:00 | Outpatient (CLI) | payer BC | END 2021-10-11 23:59 | LOC: LAB.WC 08:00 | PROVIDERS: ATTEND Obstetrics & Gynecology | DX: Z36.85 Encounter for antenatal screening for Streptococcus B (principal) | CPT/HCPCS: 87797 ==

== ENCOUNTER 2021-10-24 08:43 | Outpatient (CLI) | payer BC ==
[2021-10-24 09:04] VITALS: BP 133/83
[2021-10-24 10:11] LABS: RUPTURE OF MEMBRANES PLUS NEGATIVE (NEGATIVE)
--- NOTE | 2021-10-24 10:42 | PROVIDER PROGRESS NOTE ---
- HPI Chief Complaint: Other (Patient presents with complaints of leakage of fluid. She is unsure if she has had rupture of membranes. She notes irregular contractions. She has some discomfort with the contractions but they are tolerable. She notes positive movement. She denies vaginal bleeding.) Current : Vital Signs Temperature 98.2 F 10/24/21 09:01 Heart Rate 110 H 10/24/21 09:01 Respiratory Rate 20 10/24/21 09:01 Blood Pressure 133/83 H 10/24/21 09:01 O2 Saturation 100 10/24/21 09:01 Temperature 98.2 F 10/24/21 09:08 Heart Rate 110 H 10/24/21 09:01 Respiratory Rate 20 10/24/21 09:01 Blood Pressure 133/83 H 10/24/21 09:01 O2 Saturation 100 10/24/21 09:01 - Exam Vital Signs (72 hours) 10/24/21 10/24/21 09:01 09:08 Temperature 98.2 F 98.2 F Heart Rate [ 110 H Brachial] Respiratory 20 Rate Blood Pressure 133/83 H [Right Brachial artery] O2 Saturation 100 Sterile vaginal exam1/75/high on exam by RN Laboratory Results - last 24 hr 10/24/21 09:35 Membranes Rupture NEGATIVE - Procedures OB Procedure Performed: NST NST Procedure: heart rate baseline-140 beats per minutes Moderate variability Accelerations 15x15 Decelerations none Contractions irregular NST reactive and reassuring Service Date of procedure: 10/24/21 - Plan Plan: 30-year-old G 15 P1 at 38 weeks 0 days who presents with complaints of leakage of fluid. #Leakage of fluidAmniSure negative. Irregular contractions noted. Cervix 1 cm on exam by RN. Patient stable for discharge with labor precautions. Follow up scheduled with OB in 2 days.
== END 2021-10-24 11:15 | disposition home or self-care (01) ==
LOC: WFO 08:43 → FBP 08:46 → WFO 11:15
PROVIDERS: ATTEND Obstetrics & Gynecology
DX: O99.891 Other specified diseases and conditions complicating pregnancy (principal); N89.8 Other specified noninflammatory disorders of vagina; Z3A.38 38 weeks gestation of pregnancy; O47.1 False labor at or after 37 completed weeks of gestation
CPT/HCPCS: 59025; 84112; 99214

== ENCOUNTER 2021-10-31 22:36 | Inpatient (IN) | payer BC ==
[2021-10-31 23:45] LABS: BASOPHILS % (AUTO) 0.1 %; EOSINOPHILS # (AUTO) 0.1 10^3/uL (0.0-0.7); EOSINOPHILS % (AUTO) 1.1 %; HCT - HEMATOCRIT 36.9 % (37.0-47.0); LYMPHOCYTES # (AUTO) 2.7 10^3/uL (1.5-3.5); LYMPHOCYTES % (AUTO) 23.7 %; MEAN CORPUSCULAR HEMOGLOBIN 32.8 pg (27.0-31.0); MEAN CORPUSCULAR HGB CONC 35.2 g/dL (32.0-36.0); MEAN CORPUSCULAR VOLUME 93.2 fL (81.0-99.0); MEAN PLATELET VOLUME 10.8 fL (7.9-10.8); MONOCYTES # (AUTO) 0.9 10^3/uL (0.0-1.0); MONOCYTES % (AUTO) 8.2 %; NEUTROPHILS # (AUTO) 7.5 10^3/uL (1.5-6.6); NEUTROPHILS % (AUTO) 66.6 %; PLT - PLATELET COUNT 195 10^3/uL (130-450); RED BLOOD COUNT 3.96 10^6/uL (4.20-5.40); RED CELL DISTRIBUTION WIDTH 12.8 % (12.0-15.0); WHITE BLOOD COUNT 11.3 x10^3/uL (4.8-10.8)
[2021-10-31 23:57] LABS: ALBUMIN 3.1 g/dL (3.2-5.5); ALBUMIN/GLOBULIN RATIO 0.9 (1.0-2.2); BILIRUBIN,TOTAL 0.5 mg/dL (0.2-1.0); CALCIUM 9.1 mg/dL (8.5-10.3); CREATININE 0.5 mg/dL (0.4-1.0); POTASSIUM 3.5 mmol/L (3.5-5.0); TOTAL PROTEIN 6.5 g/dL (6.7-8.2)
[2021-11-01 00:18] LABS: RUPTURE OF MEMBRANES PLUS POSITIVE (NEGATIVE)
[2021-11-01] MEDS ORDERED: METHYLERGONOVINE 0.2 MG/ML VIAL IM PRN (00:30)
[2021-11-01] MEDS ORDERED: fentaNYL 100 MCG/2 ML VIAL IVP PRN (00:30)
[2021-11-01] MEDS ORDERED: OXYTOCIN/SODIUM CHLORIDE 500 ML IV PRN (00:30)
[2021-11-01] MEDS ORDERED: SODIUM CHLORIDE FLUSH 0.9% 10 ML SYRINGE IVP PRN (00:30)
[2021-11-01] MEDS ORDERED: TERBUTALINE 1 MG/ML VIAL SUBQ PRN (00:30)
[2021-11-01] MEDS ORDERED: ONDANSETRON 4 MG/2 ML VIAL IVP PRN (00:30)
[2021-11-01] MEDS ORDERED: LABETALOL 20 MG/4 ML SYRINGE IVP PRN (00:30)
[2021-11-01] MEDS ORDERED: OXYTOCIN 10 UNIT/ML VIAL IM PRN (00:30)
[2021-11-01] MEDS ORDERED: TRANEXAMIC ACID IN NACL 1,000 MG/100 ML BAG IV PRN (00:30)
[2021-11-01] MEDS ORDERED: miSOPROStoL 200 MCG TABLET PR PRN (00:30)
[2021-11-01] MEDS ORDERED: LIDOCAINE-MPF 1% 30 ML VIAL ID PRN (00:30)
[2021-11-01] MEDS ORDERED: miSOPROStoL 200 MCG TABLET BC PRN (00:30)
[2021-11-01] MEDS ORDERED: CARBOPROST TROMETHAMINE 250 MCG/ML AMP IM PRN (00:30)
[2021-11-01] MEDS ORDERED: LACTATED RINGERS 1,000 ML IV SCH ×2 (02:00→23:45)
[2021-11-01] MEDS ORDERED: FAMOTIDINE 20 MG/2 ML VIAL IVP PRN (02:02)
[2021-11-01] MEDS: LACTATED RINGERS 1,000 ML IV SCH ×3 (02:03→20:22)
--- NOTE | 2021-11-01 02:32 | HISTORY & PHYSICAL EXAMINATION ---
Admit History - Visit Reason Visit Reason: Membranes rupture - : 15 Parity: 1 Risk/History: positive: High risk Complications This : positive: None Smoking Status: Current every day smoker - Mother's Labs Mother's Blood Type: positive: O Mother's RH: positive: Positive GBS: positive: Group B Step Negative Rubella Status: positive: Equivocal - Other Maternal History Other Maternal History: ID: Patient is a 30 yo at 39+1 wga here with ROM. HPI: Patient reports having intermittent contractions through the evening. She then passed clear fluid per vagina. ROM+ was positive for SROM. She is GBS negative. Rubella equivocal. Blood type O positive. Smokes 1/2 ppd and request nicotine patch. Could not tolerate glucola and had been profiling. PNC: LMP: 01/31/2021 Initial US: 03/07 @5w IUP CRL 2.8mm = 5w + 6d with JANELLE 11/07/2021. Follow-up 03/18 @6w + 4d IUP CRL 1.0cm = 7w + 0d with JANELLE 11/04/2021. Final JANELLE: 11/07/2021 On ASA O+/Rubella:equivocal Varicella:IMMUNE Genetic Testing: Reviewed options including NIPT/QUAD/IS/NT and carrier screening. Declined all testing FAS: anterior, 73%ile, 3VC, CL 3.49 (I reviewed images), FAS wnl Glucola: at 28 weeks-ordered. Pt not yet completed. Profiling has self discontinued -See Flow sheet. FBG have been elevated. Unclear if had coffee prior to one test. Did not continue to monitor. Flu: given 08/01/21 Tdap:at 08/18/2021 COVID: 2nd vaccine 07/01/21 GBS:Negative @ 36.0 HSV: Denies self and partner Breast pump Rx: Given MOD: Anticipate , considering induction PP contraception: Likely IUD, possible partner vasectomy. Pap: 2018 Negative/Negative HPV Past Medical History: Alcohol abuse and dependance remission since 12/02/2017. Recovered Anorexic/Bulemic x 5 years. 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 PE: VS: 98.0 83 137/73 18 GEN: NAD HEENT: NCAT CV: RR RESP: Nl effort ABD: Gravid, S&NT EXT: WWP, no LE edema PSYCH: appropriate affect NEURO: A&O EFM 135 mod drew 15x15 accels no decels TOCO: Q10 min ROM+ pos SVE: /-2 A/P: 30 yo at 39+1 wga here with SROM SROM: in early labor -reviewed options of expt managemtn vs pitocin augmentation -Patient requesting pitocin; ordered -Minimize SVE given ROM FWB: cat I tracing, vertex, GBS neg, well grown -CEFM TOBACCO DEPENDENCE: -confirmed sometimes smokes priot to BF, smokes >=1/2 ppd -21 mg patch ordered PAIN: Desires epidural; order upon request HTN: Patient notes concern for HTN. Normal range pressures at presentation CBC and CMP reassuring MOD: Anticipate Inpatient care Meds/Allgy - Home Medications Home Medications: Ambulatory Orders Medication Instructions Recorded Confirmed Pnv No.95/Ferrous Fum/Folic AC 1 tab ORAL DAILY 11/02/20 11/02/20 [ Tablet] - Allergies Allergies/Adverse Reactions: Allergies Allergy/AdvReac Type Severity Reaction Status Date / Time bupropion [From Wellbutrin] AdvReac Anxiety Verified 02/23/21 14:37 Physical - Abdominal Exam Vital Signs: Temp Pulse Resp BP Pulse Ox 98.0 F 83 18 137/73 H 11/01/21 02:18 11/01/21 02:18 11/01/21 02:18 11/01/21 02:18
[2021-11-01] MEDS: CALCIUM CARBONATE CHEW 500 MG TABLET PO PRN ×2 (02:41→09:40)
[2021-11-01] MEDS ORDERED: OXYTOCIN/SODIUM CHLORIDE 500 ML IV SCH (03:00)
[2021-11-01] MEDS ORDERED: NICOTINE 21 MG PATCH TOP SCH (03:00)
--- NOTE | 2021-11-01 07:54 | PROVIDER PROGRESS NOTE ---
Subjective - Prog Note Date Prog Note Date: 11/01/21 Prog Note Time: 07:51 - Subjective Subjective: Patient opted to start pitocin. Current dose 5 mU/min VS: 128/77 75 18 36.6 GEN: NAD HEENT: NCAT CV: RR RESP: normal effort ABD: gravid, S&NT EFM 125 mod drew 15x15 accels no decels TOCO: Q3-5 min SVE 3-4/50/-3/posterior A/P: 30 yo at 39+2 wga here with SROM -Minimal change in SVE -Cont with pitocin -Limit SVE given ROM -Desires epidural when pain unamanageable -Consider AROM when head better applied -Cat I tracing Objective - Vital Signs/Intake & Output Vital Signs: Vital Signs x48h Temp Pulse Pulse Resp BP BP 11/01/21 02:18 98.0 F 83 18 137/73 H 11/01/21 00:36 98.0 F 83 20 137/73 H Intake & Output: Intake & Output 10/29/21 10/30/21 10/31/21 11/01/21 23:59 23:59 23:59 23:59 Intake Total 360.883 Output Total 230 Balance 130.883 - Lab Results Fish Bones: 10/31/21 23:41 10/31/21 23:41 Other Labs: Lab Results x24hrs 11/01/21 10/31/21 10/31/21 Range/Units 01:05 23:52 23:41 WBC 11.3 H (4.8-10.8) x10^3/uL RBC 3.96 L (4.20-5.40) 10^6/uL Hgb 13.0 (12.0-16.0) g/dL Hct 36.9 L (37.0-47.0) % MCV 93.2 (81.0-99.0) fL MCH 32.8 H (27.0-31.0) pg MCHC 35.2 (32.0-36.0) g/dL RDW 12.8 (12.0-15.0) % Plt Count 195 (130-450) 10^3/uL MPV 10.8 (7.9-10.8) fL Neut # (Auto) 7.5 H (1.5-6.6) 10^3/uL Lymph # (Auto) 2.7 (1.5-3.5) 10^3/uL Hinds # (Auto) 0.9 (0.0-1.0) 10^3/uL Eos # (Auto) 0.1 (0.0-0.7) 10^3/uL Baso # (Auto) 0.0 (0.0-0.1) 10^3/uL Absolute Nucleated RBC 0.00 x10^3/uL Nucleated RBC % 0.0 /100WBC Sodium (135-145) mmol/L Potassium (3.5-5.0) mmol/L Chloride (101-111) mmol/L Carbon Dioxide (21-32) mmol/L Anion Gap (6-13) BUN (6-20) mg/dL Creatinine (0.4-1.0) mg/dL Estimated GFR (MDRD) (>89) Glucose (70-100) mg/dL Calcium (8.5-10.3) mg/dL Total Bilirubin (0.2-1.0) mg/dL AST (10-42) IU/L ALT (10-60) IU/L Alkaline Phosphatase (42-121) IU/L Total Protein (6.7-8.2) g/dL Albumin (3.2-5.5) g/dL Globulin (2.1-4.2) g/dL Albumin/Globulin Ratio (1.0-2.2) Membranes Rupture POSITIVE A (NEGATIVE) Blood Type O POSITIVE Antibody Screen NEGATIVE 10/31/21 Range/Units 23:41 WBC (4.8-10.8) x10^3/uL RBC (4.20-5.40) 10^6/uL Hgb (12.0-16.0) g/dL Hct (37.0-47.0) % MCV (81.0-99.0) fL MCH (27.0-31.0) pg MCHC (32.0-36.0) g/dL RDW (12.0-15.0) % Plt Count (130-450) 10^3/uL MPV (7.9-10.8) fL Neut # (Auto) (1.5-6.6) 10^3/uL Lymph # (Auto) (1.5-3.5) 10^3/uL Hinds # (Auto) (0.0-1.0) 10^3/uL Eos # (Auto) (0.0-0.7) 10^3/uL Baso # (Auto) (0.0-0.1) 10^3/uL Absolute Nucleated RBC x10^3/uL Nucleated RBC % /100WBC Sodium 133 L (135-145) mmol/L Potassium 3.5 (3.5-5.0) mmol/L Chloride 105 (101-111) mmol/L Carbon Dioxide 19 L (21-32) mmol/L Anion Gap 9.0 (6-13) BUN 12 (6-20) mg/dL Creatinine 0.5 (0.4-1.0) mg/dL Estimated GFR (MDRD) 144 (>89) Glucose 92 (70-100) mg/dL Calcium 9.1 (8.5-10.3) mg/dL Total Bilirubin 0.5 (0.2-1.0) mg/dL AST 16 (10-42) IU/L ALT 10 (10-60) IU/L Alkaline Phosphatase 165 H (42-121) IU/L Total Protein 6.5 L (6.7-8.2) g/dL Albumin 3.1 L (3.2-5.5) g/dL Globulin 3.4 (2.1-4.2) g/dL Albumin/Globulin Ratio 0.9 L (1.0-2.2) Membranes Rupture (NEGATIVE) Blood Type Antibody Screen
--- NOTE | 2021-11-01 14:52 | ANESTHESIA ---
Pre-Anesthesia VS, & Labs - Diagnosis active labor - Procedure vaginal delivery Vital Signs: Temp Pulse Resp BP Pulse Ox 36.7 C 83 18 137/73 H 11/01/21 02:18 11/01/21 02:18 11/01/21 02:18 11/01/21 02:18 Height: 5 ft 5 in Weight (kg): 68.492 kg Body Mass Index: 25.1 BMI Classification: Overweight - NPO Last Fluid Intake: clear liquids - Is Patient ?: Yes - Lab Results Current Lab Results: Laboratory Tests 11/01/21 01:05: Blood Type O POSITIVE, Antibody Screen NEGATIVE 10/31/21 23:41: WBC 11.3 H, RBC 3.96 L, Hgb 13.0, Hct 36.9 L, MCV 93.2, MCH 32.8 H, MCHC 35.2, RDW 12.8, Plt Count 195, MPV 10.8, Neut # (Auto) 7.5 H, Lymph # (Auto) 2.7, [facility] # (Auto) 0.9, Eos # (Auto) 0.1, Baso # (Auto) 0.0, Absolute Nucleated RBC 0.00, Nucleated RBC % 0.0 10/31/21 23:41: Sodium 133 L, Potassium 3.5, Chloride 105, Carbon Dioxide 19 L, Anion Gap 9.0, BUN 12, Creatinine 0.5, Estimated GFR (MDRD) 144, Glucose 92, Calcium 9.1, Total Bilirubin 0.5, AST 16, ALT 10, Alkaline Phosphatase 165 H, Total Protein 6.5 L, Albumin 3.1 L, Globulin 3.4, Albumin/Globulin Ratio 0.9 L Fish Bones: 10/31/21 23:41 10/31/21 23:41 Home Medications and Allergies Active Medications Calcium Carbonate/Glycine (Calcium Carbonate Chew 500 Mg Tablet) 500 mg PO BID PRN PRN Reason: gerd Last Admin: 11/01/21 09:40 Dose: 500 mg Carboprost Tromethamine (Carboprost Tromethamine 250 Mcg/Ml Amp) 250 mcg IM .ONCE PRN PRN Reason: Hemorrhage Famotidine (Famotidine 20 Mg/2 Ml Vial) 20 mg IVP BID PRN PRN Reason: GERD Last Admin: 11/01/21 11:22 Dose: 20 mg Fentanyl (Fentanyl 100 Mcg/2 Ml Vial) 50 mcg IVP Q1H PRN PRN Reason: Severe Pain (score 7-10) Oxytocin/Sodium Chloride (Pitocin/Sodium Chloride) 500 mls @ 999 mls/hr IV PRN PRN; Protocol PRN Reason: POST- HEMORR PREVENTION Tranexamic Acid (Tranexamic 1,000 Mg/100ml-Nacl) 1,000 mg in 100 mls @ 600 mls/hr IV Q30M PRN PRN Reason: EBL >1200mL and within 3hr Lactated Ringer's (Lr) 1,000 mls @ 125 mls/hr IV .Q8H JARROD Last Admin: 11/01/21 11:17 Dose: 50 mls/hr Oxytocin/Sodium Chloride (Pitocin/Sodium Chloride) 500 mls @ 1 mls/hr IV TITR JARROD; Protocol Last Titration: 11/01/21 13:32 Dose: 13 milliunit/min, 13 mls/hr Labetalol HCl (Labetalol 20 Mg/4 Ml Syringe) 20 - 80 mg IVP Q10M PRN; Protocol PRN Reason: SBP> or= 160 OR DBP> or= 110 Lidocaine HCl (Lidocaine-Mpf 1% 30 Ml Vial) 30 ml ID ONCE PRN PRN Reason: PERINEAL REPAIR Stop: 11/02/21 00:30 Methylergonovine Maleate (Methylergonovine 0.2 Mg/Ml Vial) 0.2 mg IM .ONCE PRN PRN Reason: Hemorrhage Misoprostol (Misoprostol 200 Mcg Tablet) 600 mcg BC .ONCE PRN PRN Reason: Hemorrhage Misoprostol (Misoprostol 200 Mcg Tablet) 800 mcg RI .ONCE PRN PRN Reason: Hemorrhage Nicotine (Nicotine 21 Mg Patch) 1 patch TOP DAILY [facility] Ondansetron HCl (Ondansetron 4 Mg/2 Ml Vial) 4 mg IVP PRN PRN PRN Reason: Nausea / Vomiting Oxytocin (Oxytocin 10 Unit/Ml Vial) 10 unit IM .ONCE PRN PRN Reason: Step One if no IV access. Sodium Chloride (Sodium Chloride Flush 0.9% 10 Ml Syringe) 10 ml IVP PRN PRN PRN Reason: NEEDED PER PROVIDER ORDERS Terbutaline Sulfate (Terbutaline 1 Mg/Ml Vial) 0.25 mg SUBQ .ONCE PRN PRN Reason: Tachystole Pnv No.95/Ferrous Fum/Folic AC [ Tablet] 1 tab ORAL DAILY 11/02/20 Allergies/Adverse Reactions: Allergies Allergy/AdvReac Type Severity Reaction Status Date / Time bupropion [From Wellbutrin] AdvReac Anxiety Verified 02/23/21 14:37 Anes History & Medical History - Anesthetic History Anesthesia Complications: reports: No previous complications - Medical History Cardiovascular: reports: Other (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 Denies any palpitations.) Pulmonary: reports: None Gastrointestinal: reports: GERD Urinary: reports: None Neuro: reports: None Musculoskeletal: reports: None Endocrine/Autoimmune: reports: None Blood Disorders: reports: None Skin: reports: None Smoking Status: Current every day smoker (1/2 pack per day) Psychosocial: reports: Anxiety History of Cancer?: No - Surgical History Gynecologic: reports: Other (ectopic 2010) - Obstetrical History : 15 Parity: 1 Events: reports: High risk Complications: reports: None Exam General: Alert, Oriented x3, Cooperative, No acute distress Dental: WNL Mouth Openin Fingerbreadth Neck Mobility: Normal Mallampati classification: II Thyromental Distance: 4-6 cm Mental/Cognitive Status: Alert/Oriented X3, Normal for patient Plan Anesthesia Type: Epidural Consent for Procedure(s) Verified and Reviewed: Yes Code Status: Attempt Resuscitation ASA classification: 2-Mild systemic disease Is this case an emergency?: No
[2021-11-01] MEDS ORDERED: ROPIVACAINE 0.2% 200 MG/100 ML BAG EP ONE (19:33)
[2021-11-01] MEDS ORDERED: NALOXONE 0.4 MG/ML VIAL IVP PRN (19:56)
[2021-11-01] MEDS ORDERED: ROPIVACAINE 0.2% 200 MG/100 ML BAG EP PRN (19:56)
[2021-11-01] MEDS: ePHEDrine 50 MG/ML VIAL IVP PRN ×3 (21:04→21:18)
[2021-11-01] MEDS ORDERED: SIMETHICONE CHEW 80 MG TABLET PO PRN (23:01)
[2021-11-01] MEDS ORDERED: HYDROCORTISONE 1% CREAM 28 GM TUBE PR PRN (23:01)
[2021-11-01] MEDS ORDERED: DOCUSATE SODIUM 100 MG CAPSULE PO PRN (23:01)
[2021-11-01] MEDS ORDERED: ONDANSETRON ODT 4 MG TABLET TL PRN (23:01)
--- NOTE | 2021-11-01 23:04 | DELIVERY NOTE ---
Delivery Note - Labor Labor: positive: Augmented by oxytocin - Delivery Method Delivery Method: positive: Spontaneous vaginal delivery - Presentation Presentation: positive: Vertex, Compound - Nuchal Cord Nuchal Cord: positive: None - Anesthetic Anesthetic Type: - Amniotic Fluid Description Amniotic Fluid Description: positive: Clear - Episiotomy Type Episiotomy Type: positive: None - Laceration Laceration: positive: None - Delivery Outcome Delivery Outcome: positive: Livebirth - Orange: positive: Placed in direct skin contact with mother, Stimulated, Warmed, Easley used sex: positive: Male : Apgars 9/10 - Cord Cord: positive: 3 vessels - Placenta Placenta: positive: Intact, Expressed, Other (Delayed delivery of placenta. Calcifications noted. Not full manual removal but external manipulation of presenting part exterior to the uterus.) - Post Delivery Events Post Delivery Events: positive: No post delivery events - Delivery Comments (Free Text/Narrative) Delivery Comments (Free Text/Narrative): STAGE I: Patient is a 30 yo at 39+1 wga who presented with SROM. Patient reported having intermittent contractions through the evening. She then passed clear fluid per vagina. ROM+ was positive for SROM. She is GBS negative. Rubella equivocal. Blood type O positive. Smokes 1/2 ppd and request nicotine patch. Could not tolerate glucola and had been profiling. Initial SVE 350/-2. Patient opted for pitocin augmentation. Max dose 14 mU/min. GBS negative; antibiotics were not indicated. Forebag artificially ruptured at 17:19 on 11/01/21. Patient received epidural for pain management. Noted to be complete at 21:36 on 11/01/21. Cat I tracing throughout Stage I labor. STAGE II: Patient attempted to labor down but labor progressed quickly and she started to push at 21:52. Delivered viable male from vertex, BRUNO presentation with left shoulder anterior and posterior presentation of a compou nd hand at 22:13. Anterior shoulder delivered without difficulty. delivered to maternal chest. Cord was clamped x2 and cut after pulsations had ceased. No nuchal cord. Apgars 9/10, weight pending. STAGE III: Placenta delivered with manual expression and external extraction (external portion of placenta manipulated manually but no exploration of the uterine cavity at 22:40. It was examined and found to be intact. Perineum was intact and without laceration. EBL 250 cc. Patient was given pitocin and misoprostol 600 mcg BC x1. Good hemostasis was noted.
[2021-11-01] MEDS: IBUPROFEN 600 MG TABLET PO PRN (23:39)
[2021-11-01] MEDS: ACETAMINOPHEN 500 MG TABLET PO PRN (23:40)
[2021-11-02] MEDS ORDERED: NICOTINE 21 MG PATCH TOP SCH ×2 (00:50→07:00)
[2021-11-02] MEDS: IBUPROFEN 600 MG TABLET PO PRN (08:35)
[2021-11-02] MEDS: ACETAMINOPHEN 500 MG TABLET PO PRN ×2 (08:35→17:12)
--- NOTE | 2021-11-02 17:59 | PROVIDER PROGRESS NOTE ---
Subjective - Prog Note Date Prog Note Date: 11/02/21 Prog Note Time: 12:00 - Subjective Subjective: Patient is doing well PPD#1. Pain well managed. Up and ambulating. Tolerating po. Voiding. BF going well. Objective - Vital Signs/Intake & Output Reviewed Vital Signs: Yes Vital Signs: Vital Signs x48h Temp Pulse Resp BP Pulse Ox 11/02/21 17:00 131/80 H 11/02/21 16:32 98.4 F 76 16 102/44 L 98 11/02/21 12:06 97.7 F 63 20 137/67 H 100 Intake & Output: Intake & Output 10/30/21 10/31/21 11/01/21 11/02/21 23:59 23:59 23:59 23:59 Intake Total 3250.000 1200 Output Total 630 850 Balance 2620.000 350 - Objective General Appearance: positive: No acute distress Neck: positive: Nml inspection Respiratory: positive: No respiratory distress Cardiovascular: positive: Other (RR) Peripheral Pulses: 1+ Dorsalis pedis (R), 1+ Dorsalis pedis (L) Abdomen: positive: Non-tender, Other (FF below umbi) Back: positive: Nml inspection Skin: positive: Color nml Extremities: positive: Non-tender, Pedal edema (symmetric and bilateral) Neurologic/Psychiatric: positive: Oriented x3 - Lab Results Fish Bones: 10/31/21 23:41 10/31/21 23:41 Assessment/Plan - Problem List (1) Vaginal delivery Impression: PPD#1: doing well Desires am discharge Routine DC instructions given
[2021-11-02] MEDS ORDERED: MEASLES,MUMPS & RUBELLA VACC 0.5 ML VIAL SUBQ ONE (18:00)
--- NOTE | 2021-11-02 18:02 | Discharge Plan ---
Discharge Plan Problem Reviewed?: Yes Disposition: Home, Self Care Condition: Good Prescriptions: Acetaminophen [Acetaminophen Extra Strength] 1,000 mg PO Q8H PRN #60 tablet PRN Reason: Pain Docusate Sodium 100Mg Capsule [Colace 100Mg Capsule] 100 - 200 mg PO BID PRN #60 cap PRN Reason: Constipation Ibuprofen [Motrin] 600 mg PO Q6H PRN #60 tab PRN Reason: Pain Diet: Regular Activity Restrictions: Additional Comments (see below) Additional Instructions or Follow Up instructions: Nothing in the vagina for 6 weeks: No intercourse, tampons, douching Call for: -Fever greater than 100.5 -Pain that does not improve with pain medication -Heavy bleeding in which you are soaking a pad an hour for 2 hours in a row -Pain in the legs (especially one sided), swelling in one leg and not the other, or difficulty/pain with breathing. No tub baths or hot tubs for 4 weeks DISCHARGE MEDICATIONS: Ibuprofen 600 mg by mouth every 6 hours as needed for pain Acetaminophen 500-1000 mg by mouth every 8 hours as needed for pain Docusate 100-200 mg by mouth twice a day as needed for constipation No Smoking: If you smoke, Please STOP! Call for help.
[2021-11-03 08:32] VITALS: BP 127/82
--- NOTE | 2021-11-03 09:18 | Labor Flowsheet ---
Labor Flowsheet Datetime Report Generated by CPN: 11/03/2021 09:18 Datetime: 11/03/2021 08:29 VITAL SIGNS NBP Sys/Romina/Mean (mmHg): 127 : 82 : 92 Pulse: 84 SpO2 (%): 99 Datetime: 11/01/2021 23:00 Temperature (C): 98.4F Temperature Route: Oral Datetime: 11/01/2021 22:46 Cervical Ripening Agents: Cytotec @ (Annotations: 600mcg BC for prolonged third stage) Datetime: 11/01/2021 22:35 Analgesics/Sedatives: Fentanyl (mcg) @ (Annotations: 50mcg for pain post delivery, vaginal checks b y provider, awaiting delivery of placenta) Datetime: 11/01/2021 22:25 Anesthesia Level Check: T10- Umbilicus Datetime: 11/01/2021 22:13 Stage 2 Comments: Delivery @ 2213 Datetime: 11/01/2021 22:10 Category: Category II Datetime: 11/01/2021 22:09 LaborFlag: Labor Datetime: 11/01/2021 22:08 Pushing Position: Pushing with Contractions; Pushing Lithotomy Pushing Progress: Descent with Pushing; Presenting Part Visible Datetime: 11/01/2021 22:00 Actions for Decelerations: Dr McSorley pushing with patient Datetime: 11/01/2021 21:55 STAGE 2 Pushing: Coached on Pushing; Urge to Push Datetime: 11/01/2021 21:53 Provider Reviewed Strip: Yes COMMUNICATION Communication: Provider at Bedside Provider Notified (Name): Dr McSorley Notification Reason: Status Update; Patient Request Communication Comments: Provider here to push with pt Datetime: 11/01/2021 21:40 Comments: EFM doubling FHR: monitor off to quickly reboot Datetime: 11/01/2021 21:36 VAGINAL EXAM Dilatation (cm): 10.0 Effacement (%): 100 Station: 1 Exam by: Dr Washington Vaginal Bleeding: Normal Show Vaginal Exam Comments: No active urge to push; will allow pt to labor down with peanut ball placeme nt Datetime: 11/01/2021 21:25 Anesthesia Comments: Epidural infusion off; pt is now 9cm; intermittent hypotension; pt has had 3 d oses of ephedrine per orders; will notify [employer] HELPER Aby and Dr Washington Datetime: 11/01/2021 21:19 Magnesium/Antihypertensives: Ephedrine IV (mg) @ 5mg IVP #3 dose; followed by NS flush Datetime: 11/01/2021 21:17 Patient Position/Activity: Left Lateral Datetime: 11/01/2021 21:15 ASSESSMENT B Category: Category II Datetime: 11/01/2021 21:00 PATIENT CARE IV/Blood Work: IV Bolus Started; IV Bolus Given ml @ 250 ANESTHESIA Anesthesia Plans: Epidural Datetime: 11/01/2021 20:38 Cervix, Consistency: Soft Cervix, Position: Anterior Datetime: 11/01/2021 20:36 I/O Interventions: Straight Cath (ml) @ 100 Patient Care Comments: C/O increased perineal/vaginal pressure, c/o urge to void Datetime: 11/01/2021 20:25 MEDICATIONS Pitocin (milliunits): Increased to @ (Annotations: 11mu ) Datetime: 11/01/2021 20:10 Vital Sign Comments: Hypotensive; LR bolus begun again Datetime: 11/01/2021 20:00 Respirations: 20 Datetime: 11/01/2021 19:56 PAIN Pain Scale: 4 Pain Goal: 4 Datetime: 11/01/2021 19:46 Monitor Interventions for UA: [place] Adjusted Datetime: 11/01/2021 19:41 Pain Presence: Intermittent Pain Type: Contraction Pain Location: Abdomen; Back Pain Relief Measures: Epidural Given Pain Coping: Breathing Through Contractions Comfort Measures: Breathing/Relaxation; Family Support Datetime: 11/01/2021 19:39 Epidural Procedure: Loading Dose Datetime: 11/01/2021 19:30 TEACHING Instructional Method: Verbal; Written; Patient Instructed; Family/Support Person Instructed; Verbal ized Understanding Plan of Care: Plan of Care Discussed Unit Routine: Routine Time Outs; Medications Labor/Induction: Activity Pain Management: Epidural Related: Activity and Rest Datetime: 11/01/2021 19:27 Epidural Positioning: Sitting Datetime: 11/01/2021 19:26 PROCEDURE TIME OUT Procedure Type: 1926 Procedure Verify: Correct Patient Identity; Correct Side and Site are Marked; Accurate Procedure Co nsent Form; Agreement on Procedure to be Done; Correct Patient Position; Addressed Need to Administer Antibiotics or Fluids for Irrigation; Safety Precautions Based on Patient History or Medication Use Datetime: 11/01/2021 19:20 MATERNAL ASSESSMENT Level of Consciousness: Alert DTR's/Clonus: DTRs 2+ Headache: Denies Breath Sounds, Left: Clear and Equal Breath Sounds, Right: Clear and Equal Nausea/Vomiting: Denies RUQ Epigastric Pain: Denies Datetime: 11/01/2021 19:13 Pain Assessment Comments: Will proceed with epidural per pt request Membrane Status: Ruptured Membranes Rupture Method: Artificial (Annotations: Forebag noted and AROM by provider with small am ount clear fluid noted) Amniotic Fluid Color: Clear Amniotic Fluid Amount: Small Amniotic Fluid Odor: None Membrane Comments: Forebag ruptured by Dr Washington Datetime: 11/01/2021 19:00 Stage of : Labor UTERINE ACTIVITY Monitor Mode: External Frequency (min): 3-4 Quality: Moderate Duration (sec): 60-70 Pattern: Normal: <= 5 Contractions in 10 Minutes Resting Tone (Palpate): Relaxed Pitocin Checklist: At Least 1 Acceleration of 15 bpm x 15 Seconds in 30 Minutes or Adequate Variabi lity; No More than 1 Late Deceleration Occurred in Past 30 Minutes; No More than 2 Variable Decelerat ions > 60 Seconds in Duration and decreasing >60 bpm in 30 minutes; No More than 5 Uterine Contractio ns in 10 Minutes for any 20 Minute Interval; Uterus Palpates Soft between Contractions ASSESSMENT A Monitor Mode: External US FHR Baseline Rate : 135 FHR Baseline Changes: No Baseline Change Variability: Moderate 6-25 bpm Accelerations: 15X15 Decelerations: None Oxygen Method: Room Air Strip Reviewed by: Karrie CASASC Datetime: 11/01/2021 11:36 Antiemetics/Antacids: Pepcid IV (mg) @ 20 Datetime: 11/01/2021 09:48 Monitor Interventions for FHR: Ultrasound Adjusted Datetime: 11/01/2021 02:05 Medications: Pitocin Datetime: 11/01/2021 01:24 Temperature (F): 98.0 Temperature (C): 36.7 Membranes Ruptured Date/Time: 10/31/2021 22:30 Pool: Positive Nitrazine: Positive ROM Test Kit: Positive
--- NOTE | 2021-11-03 09:35 | DISCHARGE SUMMARY ---
Discharge Summary Admit Date: 11/01/21 Discharge Date: 11/03/21 Discharging Provider: Padmini Condition at Discharge: Good Discharge Disposition: 01 Home, Self Care - DIAGNOSES Admission Diagnoses: IUP at 39+1 Ruptured membranes Rubella equivocal Discharge Diagnoses with Status of Each Condition: Same and delivery of term gestation - HPI History of Present Illness: Patient is a 30 yo at 39+1 wga admitted with ROM. Patient reported having intermittent contractions through the evening. She then passed clear fluid per vagina. ROM+ was positive for SROM. She is GBS negative. Rubella equivocal. Blood type O positive. Smokes 1/2 ppd and request nicotine patch. Could not tolerate glucola and had been profiling. PNC: LMP: 01/31/2021 Initial US: 03/07 @5w IUP CRL 2.8mm = 5w + 6d with JANELLE 11/07/2021. Follow-up 03/18 @6w + 4d IUP CRL 1.0cm = 7w + 0d with JANELLE 11/04/2021. Final JANELLE: 11/07/2021 On ASA O+/Rubella:equivocal Varicella:IMMUNE Genetic Testing: Reviewed options including NIPT/QUAD/IS/NT and carrier screening. Declined all testing FAS: anterior, 73%ile, 3VC, CL 3.49 (I reviewed images), FAS wnl Glucola: at 28 weeks-ordered. Pt not yet completed. Profiling has self discon tinued -See Flow sheet. FBG have been elevated. Unclear if had coffee prior to one test. Did not continue to monitor. Flu: given 08/01/21 Tdap:at 08/18/2021 COVID: 2nd vaccine 07/01/21 GBS:Negative @ 36.0 HSV: Denies self and partner Breast pump Rx: Given MOD: Anticipate , considering induction PP contraception: Likely IUD, possible partner vasectomy. Pap: 2018 Negative/Negative HPV - HOSPITAL COURSE Hospital Course: STAGE I: Patient is a 30 yo at 39+1 wga who presented with SROM. Patient reported having intermittent contractions through the evening. She then passed clear fluid per vagina. ROM+ was positive for SROM. She is GBS negative. Rubella equivocal. Blood type O positive. Smokes 1/2 ppd and request nicotine patch. Could not tolerate glucola and had been profiling. Initial SVE 3/50/-2. Patient opted for pitocin augmentation. Max dose 14 mU/min. GBS negative; antibiotics were not indicated. Forebag artificially ruptured at 17:19 on 11/01/21. Patient received epidural for pain management. Noted to be complete at 21:36 on 11/01/21. Cat I tracing throughout Stage I labor. STAGE II: Patient attempted to labor down but labor progressed quickly and she started to push at 21:52. Delivered viable male from vertex, BRUNO presentation with left shoulder anterior and posterior presentation of a compound hand at 22:13. Anterior shoulder delivered without difficulty. Infant delivered to maternal chest. Cord was clamped x2 and cut after pulsations had ceased. No nuchal cord. Apgars 9/10, weight 3594g STAGE III: Placenta delivered with manual expression and external extraction (external portion of placenta manipulated manually but no exploration of the uterine cavity at 22:40. It was examined and found to be intact. Perineum was intact and without laceration. EBL 250 cc. Patient was given pitocin and misoprostol 600 mcg BC x1. Good hemostasis was noted. Post course was uncomplicated. Received MMR for Rubella equivocal. Discharged to home on morning of PPD#2 given late delivery time. Routine discharge instructions given. - ALLERGIES Allergies/Adverse Reactions: Allergies Allergy/AdvReac Type Severity Reaction Status Date / Time bupropion [From Wellbutrin] AdvReac Anxiety Verified 02/23/21 14:37 - MEDICATIONS Home Medications: Ambulatory Orders Medication Instructions Recorded Confirmed Pnv No.95/Ferrous Fum/Folic AC 1 tab ORAL DAILY 11/02/20 11/02/20 [ Tablet] Acetaminophen [Acetaminophen Extra 1,000 mg PO Q8H PRN #60 tablet 11/02/21 Strength] Docusate Sodium 100Mg Capsule 100 - 200 mg PO BID PRN #60 cap 11/02/21 [Colace 100Mg Capsule] Ibuprofen [Motrin] 600 mg PO Q6H PRN #60 tab 11/02/21 - LABS Result Diagrams: 10/31/21 23:41 10/31/21 23:41 - FOLLOW UP Follow Up: [address] [place] - TIME SPENT Time Spent in Discharge (Minutes): 30
== END 2021-11-03 09:17 | disposition home or self-care (01) | DRG 807 ==
LOC: WFO 22:36 → FBP 22:37 → WFO 11-01 00:29 → FBP 11-01 00:30
PROVIDERS: ADMIT Obstetrics & Gynecology; ATTEND Obstetrics & Gynecology
PROC: 10E0XZZ Delivery of Products of Conception, External Approach (ICD-10-PCS; principal; 2021-11-01)
DX: O99.334 Smoking (tobacco) complicating childbirth (principal); Z37.0 Single live birth; F17.210 Nicotine dependence, cigarettes, uncomplicated; Z3A.39 39 weeks gestation of pregnancy
CPT/HCPCS: 36415; 80053; 84112; 85025; 86850; 86900; 86901; 99215; A9270; J7120

== ENCOUNTER 2022-04-11 14:52 | Outpatient (CLI) | payer BC ==
[2022-04-11 15:07] LABS: BASOPHILS % (AUTO) 0.2 %; EOSINOPHILS # (AUTO) 0.1 10^3/uL (0.0-0.7); EOSINOPHILS % (AUTO) 1.4 %; HGB - HEMOGLOBIN 14.9 g/dL (12.0-16.0); LYMPHOCYTES # (AUTO) 2.2 10^3/uL (1.5-3.5); LYMPHOCYTES % (AUTO) 23.5 %; MEAN CORPUSCULAR HEMOGLOBIN 33.4 pg (27.0-31.0); MEAN CORPUSCULAR HGB CONC 35.5 g/dL (32.0-36.0); MEAN CORPUSCULAR VOLUME 94.2 fL (81.0-99.0); MEAN PLATELET VOLUME 9.3 fL (7.9-10.8); MONOCYTES # (AUTO) 0.4 10^3/uL (0.0-1.0); MONOCYTES % (AUTO) 3.8 %; NEUTROPHILS # (AUTO) 6.7 10^3/uL (1.5-6.6); NEUTROPHILS % (AUTO) 70.9 %; PLT - PLATELET COUNT 266 10^3/uL (130-450); RED BLOOD COUNT 4.46 10^6/uL (4.20-5.40); RED CELL DISTRIBUTION WIDTH 12.2 % (12.0-15.0); WHITE BLOOD COUNT 9.4 x10^3/uL (4.8-10.8)
[2022-04-11 15:37] LABS: THYROID STIMULATING HORMONE 1.48 uIU/mL (0.34-5.60)
[2022-04-11 15:44] LABS: ALBUMIN 4.5 g/dL (3.2-5.5); ALBUMIN/GLOBULIN RATIO 1.5 (1.0-2.2); ALKALINE PHOSPHATASE 95 IU/L (42-121); ALT ALANINE AMINOTRANSFERASE 27 IU/L (10-60); AST ASPARTATE AMINOTRANSFERASE 26 IU/L (10-42); BILIRUBIN,TOTAL 0.8 mg/dL (0.2-1.0); BUN - BLOOD UREA NITROGEN 15 mg/dL (6-20); CALCIUM 9.8 mg/dL (8.5-10.3); CARBON DIOXIDE - CO2 22 mmol/L (21-32); CHLORIDE 103 mmol/L (101-111); CHOL/HDL RATIO 2.8 (<4.4); CHOLESTEROL 263 mg/dL; CREATININE 0.7 mg/dL (0.4-1.0); GFR - MDRD 97 (>89); GLUCOSE 169 mg/dL (70-100); HDL CHOLESTEROL 94 mg/dL; LDL CHOLESTEROL,CALCULATED 148 mg/dL; LDL/HDL RATIO 1.6 (<4.4); POTASSIUM 3.9 mmol/L (3.5-5.0); SODIUM 137 mmol/L (135-145); TOTAL PROTEIN 7.5 g/dL (6.7-8.2); TRIGLYCERIDES 103 mg/dL; VLDL CHOLESTEROL 21 mg/dL
== END 2022-04-11 14:53 | disposition home or self-care (01) ==
LOC: LAB 14:52
PROVIDERS: ATTEND Nurse Practitioner Family
DX: Z00.00 Encounter for general adult medical examination without abnormal findings (principal)
CPT/HCPCS: 36415; 80053; 80061; 83721; 84443; 85025

== ENCOUNTER 2022-05-15 13:39 | Outpatient (CLI) | payer BC ==
--- NOTE | 2022-05-15 16:34 | Ultrasound Report ---
PROCEDURE: Head or Neck Soft Tissue INDICATIONS: MULTIPLE THYROID NODULES TECHNIQUE: Real-time scanning was performed of the thyroid gland, with image documentation. COMPARISON: 09/11/2020, 09/01/2017. FINDINGS: Right: Thyroid lobe measures 4.6 x 1.6 x 1.4 cm, and is homogeneous in echotexture. Left: Thyroid lobe measures 4.9 x 1.9 x 1.7 cm, and is homogenous in echotexture. Isthmus: 3 mm thick. Nodule number: One Location: Right inferior Size: 1.1 x 0.6 x 0.5 cm. Previously 1.3 x 0.6 x 0.5 cm Composition: Spongiform Echogenicity: Hypoechoic Shape: wider than tall. Margins: Smooth Echogenic foci: None Total points: 2 ACR TI-RADS category: TR 2, not suspicious Nodule number: Two Location: Right mid Size: 0.6 x 0.4 x 0.4 cm. Not previously seen. Composition: Solid Echogenicity: Isoechoic Shape: wider than tall. Margins: Smooth Echogenic foci: None Total points: 3 ACR TI-RADS category: TR 3, mildly suspicious Nodule number: Three Location: Right superior Size: 0.5 x 0.4 x 0.4 cm. Previously 0.5 x 0.4 x 0.4 cm Composition: Solid Echogenicity: Isoechoic Shape: wider than tall. Margins: Smooth Echogenic foci: None Total points: 3 ACR TI-RADS category: TR 3, mildly suspicious IMPRESSION: Right inferior thyroid nodule measuring 1.1 cm. TR 2, not suspicious. Subcentimeter right thyroid nodules measuring less than 1.5 cm. ACR TI-RADS definitions and recommendations: TI-RADS 1 (benign): 0 points. FNA not needed. TI-RADS 2 (not suspicious): 2 points. FNA not needed. TI-RADS 3 (mildly suspicious): 3 points. "FNA if 2.5 cm or larger, follow up if 1.5 cm or larger (at 1, 3, and 5 years). TI-RADS 4 (moderately suspicious): 4-6 points. "FNA if 1.5 cm or larger, follow up if 1 cm or larger (at 1, 2, 3, and 5 years). TI-RADS 5 (highly suspicious): 7 points or more. "FNA if 1 cm or larger, follow up if 0.5 cm or larger (every year for 5 years). Reviewed by: Jim Carter MD on 05/15/2022 3:33 PM WAYNE Approved by: Jim Carter MD on 05/15/2022 3:33 PM WAYNE Station ID: [id number]
== END 2022-05-15 13:40 | disposition home or self-care (01) ==
LOC: DI 13:39
PROVIDERS: ATTEND Nurse Practitioner Family
DX: E04.2 Nontoxic multinodular goiter (principal)

== ENCOUNTER 2022-08-21 07:51 | Outpatient (CLI) | payer BC ==
[2022-08-21 08:01] LABS: BASOPHILS % (AUTO) 0.3 %; EOSINOPHILS # (AUTO) 0.4 10^3/uL (0.0-0.7); EOSINOPHILS % (AUTO) 5.6 %; HGB - HEMOGLOBIN 15.3 g/dL (12.0-16.0); LYMPHOCYTES # (AUTO) 2.9 10^3/uL (1.5-3.5); LYMPHOCYTES % (AUTO) 39.3 %; MEAN CORPUSCULAR HEMOGLOBIN 32.9 pg (27.0-31.0); MEAN CORPUSCULAR HGB CONC 33.3 g/dL (32.0-36.0); MEAN CORPUSCULAR VOLUME 98.9 fL (81.0-99.0); MEAN PLATELET VOLUME 9.4 fL (7.9-10.8); MONOCYTES # (AUTO) 0.5 10^3/uL (0.0-1.0); MONOCYTES % (AUTO) 7.2 %; NEUTROPHILS # (AUTO) 3.5 10^3/uL (1.5-6.6); NEUTROPHILS % (AUTO) 47.5 %; PLT - PLATELET COUNT 234 10^3/uL (130-450); RED BLOOD COUNT 4.65 10^6/uL (4.20-5.40); RED CELL DISTRIBUTION WIDTH 12.5 % (12.0-15.0); WHITE BLOOD COUNT 7.4 x10^3/uL (4.8-10.8)
[2022-08-21 08:20] LABS: ALBUMIN/GLOBULIN RATIO 1.1 (1.0-2.2); ALKALINE PHOSPHATASE 67 IU/L (42-121); ALT ALANINE AMINOTRANSFERASE 20 IU/L (10-60); AMYLASE 35 U/L (28-100); AST ASPARTATE AMINOTRANSFERASE 18 IU/L (10-42); BILIRUBIN,TOTAL 0.6 mg/dL (0.2-1.0); BUN - BLOOD UREA NITROGEN 10 mg/dL (6-20); CALCIUM 9.3 mg/dL (8.5-10.3); CARBON DIOXIDE - CO2 19 mmol/L (21-32); CHLORIDE 104 mmol/L (101-111); CHOL/HDL RATIO 2.8 (<4.4); CHOLESTEROL 225 mg/dL; CREATININE 0.5 mg/dL (0.4-1.0); GFR - MDRD 143 (>89); GLUCOSE 73 mg/dL (70-100); HDL CHOLESTEROL 79 mg/dL; LDL CHOLESTEROL,CALCULATED 123 mg/dL; LDL/HDL RATIO 1.6 (<4.4); LIPASE 27 U/L (22-51); SODIUM 136 mmol/L (135-145); TOTAL PROTEIN 7.5 g/dL (6.7-8.2); TRIGLYCERIDES 117 mg/dL; VLDL CHOLESTEROL 23 mg/dL
== END 2022-08-21 07:52 | disposition home or self-care (01) ==
LOC: LAB 07:51
PROVIDERS: ATTEND Nurse Practitioner Family
DX: F10.10 Alcohol abuse, uncomplicated (principal); R10.12 Left upper quadrant pain; E78.5 Hyperlipidemia, unspecified
CPT/HCPCS: 36415; 80053; 80061; 82150; 83690; 83721; 85025

== ENCOUNTER 2022-11-07 07:05 | Outpatient (CLI) | payer BC ==
--- NOTE | 2022-11-07 09:02 | Ultrasound Report ---
PROCEDURE: Abdomen Limited INDICATIONS: ABD PAIN LUQ TECHNIQUE: Real-time focused scanning was performed of the abdomen, with image documentation. COMPARISONS: 05/11/2018 FINDINGS: Spleen measures 9.8 x 3.2 x 3.7 cm. The left kidney measures 11.5 cm. No hydronephrosis. IMPRESSION: No acute sonographic abnormality in the left upper quadrant. Reviewed by: Michael Lei MD on 11/07/2022 9:01 AM PDT Approved by: Michael Lei MD on 11/07/2022 9:01 AM PDT Station ID: [id number]
== END 2022-11-07 07:06 | disposition home or self-care (01) ==
LOC: DI 07:05
PROVIDERS: ATTEND Nurse Practitioner Family
DX: R10.12 Left upper quadrant pain (principal); F10.10 Alcohol abuse, uncomplicated

== ENCOUNTER 2022-12-24 14:41 | Emergency (ER) | payer BC ==
[2022-12-24 15:10] LABS: BASOPHILS % (AUTO) 0.3 %; EOSINOPHILS # (AUTO) 0.2 10^3/uL (0.0-0.7); EOSINOPHILS % (AUTO) 2.6 %; HCT - HEMATOCRIT 43.4 % (37.0-47.0); HGB - HEMOGLOBIN 14.9 g/dL (12.0-16.0); LYMPHOCYTES # (AUTO) 2.6 10^3/uL (1.5-3.5); LYMPHOCYTES % (AUTO) 33.7 %; MEAN CORPUSCULAR HEMOGLOBIN 33.5 pg (27.0-31.0); MEAN CORPUSCULAR HGB CONC 34.3 g/dL (32.0-36.0); MEAN CORPUSCULAR VOLUME 97.5 fL (81.0-99.0); MEAN PLATELET VOLUME 9.4 fL (7.9-10.8); MONOCYTES # (AUTO) 0.5 10^3/uL (0.0-1.0); MONOCYTES % (AUTO) 6.9 %; NEUTROPHILS # (AUTO) 4.3 10^3/uL (1.5-6.6); NEUTROPHILS % (AUTO) 56.4 %; PLT - PLATELET COUNT 252 10^3/uL (130-450); RED BLOOD COUNT 4.45 10^6/uL (4.20-5.40); RED CELL DISTRIBUTION WIDTH 12.4 % (12.0-15.0); WHITE BLOOD COUNT 7.7 x10^3/uL (4.8-10.8)
[2022-12-24 15:25] LABS: ALBUMIN 4.3 g/dL (3.2-5.5); ALBUMIN/GLOBULIN RATIO 1.3 (1.0-2.2); BILIRUBIN,TOTAL 0.7 mg/dL (0.2-1.0); CALCIUM 9.7 mg/dL (8.5-10.3); CREATININE 0.6 mg/dL (0.4-1.0); POTASSIUM 3.3 mmol/L (3.5-5.0); TOTAL PROTEIN 7.6 g/dL (6.7-8.2)
--- NOTE | 2022-12-24 15:55 | XRAY Report ---
PROCEDURE: Chest 1 View X-Ray INDICATIONS: Chest pain TECHNIQUE: One view of the chest was acquired. COMPARISON: None. FINDINGS: Surgical changes and devices: None. Lungs and pleura: No pleural effusions or pneumothorax. Lungs are clear. Mediastinum: Mediastinal contours appear normal. Heart size is normal. Bones and chest wall: No suspicious bony lesions. Overlying soft tissues appear unremarkable. IMPRESSION: No acute cardiopulmonary process. Reviewed by: Graham Galindo MD on 12/24/2022 2:54 PM AKDT Approved by: Graham Galindo MD on 12/24/2022 2:54 PM AKDT Station ID: [id number]
--- NOTE | 2022-12-24 16:13 | ED Physician Documentation ---
History of Present Illness - Stated complaint Stated Complaint: RACING HEART/NAUSEA - Chief complaint Chief Complaint: Cardiac - History obtained from History obtained from: Patient - History of Present Illness Timing: Yesterday Pain level max: 4 Pain level now: 3 - Additonal information Additional information: Patient is a 32-year-old female who presents with nausea and vomiting for the past several days. She complains of substernal chest burning. She states she does have a 1-year-old that she is breast-feeding as well. No cardiac history. Does have a history of gastritis, has not been taking her H2 negirto because she was unsure if it was safe with breast-feeding. No fevers. No chills. No recent antibiotics. No recent travel. Patient did drink alcohol last night before the symptoms started. Likely that irritated her existing gastritis. Patient counseled regarding signs and symptoms for which I believe and urgent re- evaluation would be necessary. Patient with good understanding of and agreement to plan and is comfortable going home at this time This document was made in part using voice recognition software. While efforts are made to proofread this document, sound alike and grammatical errors may occur. Review of Systems Constitutional: denies: Fever, Chills Respiratory: denies: Cough GI: reports: Nausea, Vomiting. 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) - Present Medications Home Medications: Ambulatory Orders Medication Instructions Recorded Confirmed Pnv No.95/Ferrous Fum/Folic AC 1 tab ORAL DAILY 11/02/20 11/02/20 [ Tablet] Acetaminophen [Acetaminophen Extra 1,000 mg PO Q8H PRN #60 tablet 11/02/21 Strength] Docusate Sodium 100Mg Capsule 100 - 200 mg PO BID PRN #60 cap 11/02/21 [Colace 100Mg Capsule] Ibuprofen [Motrin] 600 mg PO Q6H PRN #60 tab 11/02/21 Famotidine [Pepcid] 20 mg PO BID #60 tablet 12/24/22 Sucralfate [Carafate] 1 gm PO ACHS #60 tablet 12/24/22 - Allergies Allergies/Adverse Reactions: Allergies Allergy/AdvReac Type Severity Reaction Status Date / Time bupropion [From Wellbutrin] AdvReac Anxiety Verified 12/24/22 14:56 - Social History Does the pt smoke?: Yes Smoking Status: Current every day smoker (1/2 pack per day) Does the pt drink ETOH?: Yes Does the pt have substance abuse?: Yes - Immunizations Immunizations are current?: Yes - POLST Patient has POLST: No PD ED PE NORMAL - Vitals Vital signs reviewed: Yes - General General: Alert and oriented X 3, No acute distress - HEENT HEENT: Moist mucous membranes - Neck Neck: Supple, no meningeal sign - Cardiac Cardiac: RRR, Strong equal pulses - Respiratory Respiratory: No respiratory distress, Clear bilaterally - Abdomen Abdomen: Normal bowel sounds, Soft, Non tender, Non distended, Other (neg saenz's sign) - Back Back: No CVA TTP, No spinal TTP - Derm Derm: Warm and dry - Extremities Extremities: No edema, No calf tenderness / cord - Neuro Neuro: Alert and oriented X 3 - Psych Psych: Normal mood, Normal affect Results - Vitals Vitals: Vital Signs - 24 hr 12/24/22 12/24/22 12/24/22 14:52 16:24 17:26 Temperature 36.4 C L Heart Rate 95 80 79 Respiratory 16 12 26 H Rate Blood Pressure 152/93 H 126/86 H 135/100 H O2 Saturation 100 98 99 Oxygen O2 Source Room air - EKG (time done) 1453 EKG releavant findings:: EKG personally interpreted by author of this note. Relevant findings are: Rate: Rate (enter#) (93) Rhythm: NSR [place]: Normal Intervals: Normal [place] QRS: Normal Ischemia: Normal ST segments - Labs Labs: Laboratory Tests 12/24/22 12/24/22 12/24/22 15:06 15:06 15:06 WBC 7.7 RBC 4.45 Hgb 14.9 Hct 43.4 MCV 97.5 MCH 33.5 H MCHC 34.3 RDW 12.4 Plt Count 252 MPV 9.4 Neut # (Auto) 4.3 Lymph # (Auto) 2.6 [place] # (Auto) 0.5 Eos # (Auto) 0.2 Baso # (Auto) 0.0 Absolute Nucleated RBC 0.00 Nucleated RBC % 0.0 Sodium 137 Potassium 3.3 L Chloride 107 Carbon Dioxide 21 Anion Gap 9.0 BUN 11 Creatinine 0.6 Estimated GFR (MDRD) 115 Glucose 101 H Calcium 9.7 Total Bilirubin 0.7 AST 17 ALT 21 Alkaline Phosphatase 62 Troponin I High Sens < 2.3 L Total Protein 7.6 Albumin 4.3 Globulin 3.3 Albumin/Globulin Ratio 1.3 Lipase 27 - Rads (name of study) cxr Relevant Findings:: Final report received, See rad report (No acute cardiopulmonary process. ) PD Medical Decision Making - ED course Complexity details: reviewed results, re-evaluated patient, considered differential (No ST elevation RI, no aortic dissection, no PE, no tension pneumothorax, no aortic aneurysm), d/w patient ED course: 32-year-old female with epigastric abdominal/chest pain. Symptoms resolved with GI cocktail. No acute abnormalities on chest x-ray, EKG, laboratory testing. Negative high-sensitivity troponin after greater than 24 hours of symptoms. No tenderness over the gallbladder. Symptoms consistent with gastritis, likely from the increased alcohol intake yesterday. We will place her on Carafate and Pepcid. We will have her follow-up with her doctor for further care. Patient counseled regarding signs and symptoms for which I believe and urgent re- evaluation would be necessary. Patient with good understanding of and agreement to plan and is comfortable going home at this time This document was made in part using voice recognition software. While efforts are made to proofread this document, sound alike and grammatical errors may occur. Departure - Departure Disposition: Home, Self Care Clinical Impression: Gastritis Qualifiers: Gastritis type: unspecified gastritis Chronicity: acute Gastritis bleeding: without bleeding Qualified Code(s): K29.00 - Acute gastritis without bleeding Condition: Good Instructions: ED Gastritis Follow-Up: Krissy Castillo ARNP [Primary Care Provider] - Within 1 week Prescriptions: Sucralfate [Carafate] 1 gm PO ACHS #60 tablet Famotidine [Pepcid] 20 mg PO BID #60 tablet Comments: Your prescriptions were sent to [facility] in [place]. Please avoid smoking and alcohol. Avoid caffeine as well. Please return if you worsen. You should eat a bland diet, avoid fried or spicy foods as well. Your doctor may want to schedule you for an endoscopy. Discharge Date/Time: 12/24/22 17:26
[2022-12-24] MEDS: MAG HYDROX/AL HYDROX/SIMETH 30 ML UDC PO STA (16:20)
[2022-12-24] MEDS: FAMOTIDINE 20 MG TABLET PO STA (16:20)
[2022-12-24] MEDS: SUCRALFATE 1 GM/10 ML UDC PO STA (16:20)
[2022-12-24 17:27] VITALS: BP 135/100
== END 2022-12-24 17:26 | disposition home or self-care (01) ==
LOC: ED 14:41
DX: K29.00 Acute gastritis without bleeding (principal); F17.210 Nicotine dependence, cigarettes, uncomplicated; I45.6 Pre-excitation syndrome
CPT/HCPCS: 36415; 80053; 83690; 84484; 85025; 93005; 99284

== ENCOUNTER 2022-12-26 07:11 | Outpatient (CLI) | payer BC ==
--- NOTE | 2022-12-26 10:13 | Ultrasound Report ---
PROCEDURE: Abdomen Complete INDICATIONS: EPIGASTRIC ABD PAIN TECHNIQUE: Real-time scanning was performed of the abdominal and retroperitoneal organs, with image documentatio n. COMPARISON: 11/07/2022 FINDINGS: Liver: Liver is normal in size and homogeneous in echotexture. Gallbladder: Unremarkable. Biliary ducts: Intrahepatic bile ducts are non-dilated. Extrahepatic bile duct caliber measures 4 m m. Normal is 6-7 mm or less in diameter, or 10 mm or less post-cholecystectomy. Pancreas: Not well seen Spleen: Spleen is normal in size and homogeneous in echotexture. Kidneys: Kidneys are normal in size and echotexture. Right kidney measures 10 cm long; left kidney measures 11 cm long. No hydronephrosis or nephrolithiasis. No solid masses. No complex renal cystic lesions which require follow-up. Aorta: Visualized aorta is normal in caliber at less than 3 cm. Iliacs: Proximal common iliac arteries are normal in caliber at less than 2.5 cm. IVC: Intrahepatic inferior vena cava is patent. Miscellaneous: No free abdominal fluid. IMPRESSION: No acute sonographic abnormality. Reviewed by: Michael Lei MD on 12/26/2022 10:12 AM PDT Approved by: Michael Lei MD on 12/26/2022 10:12 AM PDT Station ID: [id number]
== END 2022-12-26 07:12 | disposition home or self-care (01) ==
LOC: DI 07:11
PROVIDERS: ATTEND Internal Medicine
DX: R10.13 Epigastric pain (principal)

== ENCOUNTER 2023-03-17 18:17 | Emergency (ER) | payer OTHER ==
[2023-03-17 18:33] VITALS: O2SAT 100
--- NOTE | 2023-03-17 18:49 | XRAY Report ---
PROCEDURE: Chest 1 View X-Ray INDICATIONS: Chest pain TECHNIQUE: One view of the chest was acquired. COMPARISON: 01/23/2023 FINDINGS: Surgical changes and devices: None. Lungs and pleura: No pleural effusions or pneumothorax. Lungs are clear. Mediastinum: Mediastinal contours appear normal. Heart size is normal. Bones and chest wall: No suspicious bony lesions. Overlying soft tissues appear unremarkable. IMPRESSION: No acute cardiopulmonary process, similar to prior. Reviewed by: Eric Reddy MD on 03/17/2023 5:47 PM AKDT Approved by: Eric Reddy MD on 03/17/2023 5:47 PM AKDT Station ID: [id number]
--- NOTE | 2023-03-17 19:09 | ED Physician Documentation ---
History of Present Illness - Stated complaint Stated Complaint: PALPITATIONS - Chief complaint Chief Complaint: Cardiac - History obtained from History obtained from: Patient - History of Present Illness Timing: Today Pain level max: 0 Pain level now: 0 - Additonal information Additional information: 32-year-old female presents to the emergency department complaint of palpitations today. Ongoing for the past several hours. She states that she did drink alcohol last night with her . No fevers. No chills. No cough. No congestion. No chest pain. No shortness of breath. Review of Systems Constitutional: denies: Fever, Chills Nose: denies: Rhinorrhea / runny nose, Congestion Cardiac: reports: Palpitations. 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 - Present Medications Home Medications: Ambulatory Orders Medication Instructions Recorded Confirmed Famotidine [Pepcid] 20 mg PO DAILY 03/17/23 03/17/23 - Allergies Allergies/Adverse Reactions: Allergies Allergy/AdvReac Type Severity Reaction Status Date / Time bupropion [From Wellbutrin] AdvReac Anxiety Verified 12/24/22 14:56 - Social History Does the pt smoke?: Yes Smoking Status: Current every day smoker Does the pt drink ETOH?: Yes Does the pt have substance abuse?: Yes - Immunizations Immunizations are current?: Yes - POLST Patient has POLST: No PD ED PE NORMAL - Vitals Vital signs reviewed: Yes - General General: Alert and oriented X 3, No acute distress - HEENT HEENT: PERRL, Moist mucous membranes - Neck Neck: Supple, no meningeal sign - Cardiac Cardiac: RRR, No murmur, Strong equal pulses - Respiratory Respiratory: No respiratory distress, Clear bilaterally - Abdomen Abdomen: Soft, Non tender, Non distended - Derm Derm: Warm and dry - Extremities Extremities: No edema, No calf tenderness / cord - Neuro Neuro: Alert and oriented X 3 - Psych Psych: Normal mood, Normal affect Results - Vitals Vitals: Vital Signs - 24 hr 03/17/23 03/17/23 18:25 21:08 Temperature 37.0 C Heart Rate 95 77 Respiratory 18 16 Rate Blood Pressure 151/102 H 111/70 O2 Saturation 100 100 Oxygen O2 Source Room air - EKG (time done) 1828 EKG releavant findings:: EKG personally interpreted by author of this note. Relevant findings are: Rate: Rate (enter#) (93) Rhythm: NSR, Other (PAC) [place]: Normal Intervals: Normal [place] QRS: Normal Ischemia: Normal ST segments - Labs Labs: Laboratory Tests 03/17/23 03/17/23 03/17/23 19:14 19:14 19:14 WBC 9.3 RBC 4.91 Hgb 16.2 H Hct 47.7 H MCV 97.1 MCH 33.0 H MCHC 34.0 RDW 12.0 Plt Count 222 MPV 9.6 Neut # (Auto) 5.4 Lymph # (Auto) 2.9 [place] # (Auto) 0.8 Eos # (Auto) 0.3 Baso # (Auto) 0.1 Absolute Nucleated RBC 0.00 Nucleated RBC % 0.0 Sodium 135 Potassium 3.6 Chloride 105 Carbon Dioxide 22 Anion Gap 8.0 BUN 12 Creatinine 0.5 L Estimated GFR (MDRD) 142 Glucose 93 Calcium 9.9 Phosphorus 2.8 Magnesium 1.8 Total Bilirubin 0.5 AST 13 ALT 15 Alkaline Phosphatase 66 Troponin I High Sens < 2.3 L Total Protein 7.6 Albumin 4.8 Globulin 2.8 Albumin/Globulin Ratio 1.7 Lipase 9 L - Rads (name of study) Chest x-ray Relevant Findings:: Final report received, See rad report PD Medical Decision Making - ED course Complexity details: reviewed results, re-evaluated patient, considered differential, d/w patient, d/w family ED course: No significant laboratory abnormalities. No acute findings on EKG or telemetry other than premature atrial contractions. These coincide with her symptoms. No PVCs. No V. tach. No other acute findings. No acute findings on chest x-ray. She feels better after IV fluids. Likely that the PACs were exacerbated by the recent alcohol usage. We will have her follow-up with her PCP for further care. Patient counseled regarding signs and symptoms for which I believe and urgent re-evaluation would be necessary. Patient with good understanding of and agreement to plan and is comfortable going home at this time This document was made in part using voice recognition software. While efforts are made to proofread this document, sound alike and grammatical errors may occur. Departure - Departure Disposition: 01 Home, Self Care Clinical Impression: Premature atrial contraction, Palpitations Condition: Good Instructions: ED Palpitations Follow-Up: Krissy Castillo ARNP [Primary Care Provider] - Comments: Please follow-up with your doctor as needed for further care. You have premature atrial contractions on the monitoring manager today. These are not dangerous, but can be uncomfortable. They can be effected by electrolytes, stress, energy drinks, caffeine and alcohol. Your labs, EKG and x-rays do not show any other acute abnormalities. Please return if you worsen. Forms: PCP List Discharge Date/Time: 03/17/23 21:08
[2023-03-17] MEDS ORDERED: SODIUM CHLORIDE 0.9% 1,000 ML IV STA (19:20)
[2023-03-17 19:21] LABS: BASOPHILS # (AUTO) 0.1 10^3/uL (0.0-0.1); BASOPHILS % (AUTO) 0.5 %; EOSINOPHILS # (AUTO) 0.3 10^3/uL (0.0-0.7); EOSINOPHILS % (AUTO) 2.7 %; HCT - HEMATOCRIT 47.7 % (37.0-47.0); HGB - HEMOGLOBIN 16.2 g/dL (12.0-16.0); LYMPHOCYTES # (AUTO) 2.9 10^3/uL (1.5-3.5); LYMPHOCYTES % (AUTO) 30.7 %; MEAN CORPUSCULAR VOLUME 97.1 fL (81.0-99.0); MEAN PLATELET VOLUME 9.6 fL (7.9-10.8); MONOCYTES # (AUTO) 0.8 10^3/uL (0.0-1.0); MONOCYTES % (AUTO) 8.4 %; NEUTROPHILS # (AUTO) 5.4 10^3/uL (1.5-6.6); NEUTROPHILS % (AUTO) 57.6 %; PLT - PLATELET COUNT 222 10^3/uL (130-450); RED BLOOD COUNT 4.91 10^6/uL (4.20-5.40); WHITE BLOOD COUNT 9.3 x10^3/uL (4.8-10.8)
[2023-03-17 19:41] LABS: ALBUMIN 4.8 g/dL (3.2-5.5); ALBUMIN/GLOBULIN RATIO 1.7 (1.0-2.2); ALKALINE PHOSPHATASE 66 IU/L (42-121); ALT ALANINE AMINOTRANSFERASE 15 IU/L (10-60); AST ASPARTATE AMINOTRANSFERASE 13 IU/L (10-42); BILIRUBIN,TOTAL 0.5 mg/dL (0.2-1.0); BUN - BLOOD UREA NITROGEN 12 mg/dL (6-20); CALCIUM 9.9 mg/dL (8.5-10.3); CARBON DIOXIDE - CO2 22 mmol/L (21-32); CHLORIDE 105 mmol/L (101-111); CREATININE 0.5 mg/dL (0.6-1.3); GFR - MDRD 142 (>89); GLUCOSE 93 mg/dL (74-104); POTASSIUM 3.6 mmol/L (3.5-4.5); SODIUM 135 mmol/L (135-145); TOTAL PROTEIN 7.6 g/dL (6.4-8.9)
[2023-03-17 19:43] LABS: LIPASE 9 U/L (11-82)
[2023-03-17 19:47] LABS: TROPONIN I HIGH SENSITIVITY < 2.3 ng/L (2.3-14.8)
[2023-03-17 19:59] LABS: MAGNESIUM 1.8 mg/dL (1.7-2.3); PHOSPHORUS 2.8 mg/dL (2.5-5.0)
[2023-03-17 21:08] VITALS: BP 111/70
== END 2023-03-17 21:08 | disposition home or self-care (01) ==
LOC: ED 18:17
DX: I49.1 Atrial premature depolarization (principal); R00.2 Palpitations; F17.200 Nicotine dependence, unspecified, uncomplicated
CPT/HCPCS: 36415; 80053; 83690; 83735; 84100; 84484; 85025; 93005; 99283; 99284

== ENCOUNTER 2023-05-18 15:34 | Outpatient (CLI) | payer OTHER ==
[2023-05-18 16:13] LABS: INFECTIOUS MONONUCLEOSIS NEGATIVE (Negative)
[2023-05-19 06:09] LABS: HCV AB Non Reactive (Non Reactive)
[2023-05-19 07:09] LABS: VITAMIN D 25-HYDROXY 16.9 ng/mL (30.0-100.0)
[2023-05-22 18:08] LABS: ANTINUCLEAR ANTIBODIES IFA Negative (.)
== END 2023-05-18 15:35 | disposition home or self-care (01) ==
LOC: LAB 15:34
PROVIDERS: ATTEND Physician Assistant
DX: R53.83 Other fatigue (principal); R53.81 Other malaise; R11.10 Vomiting, unspecified; F10.10 Alcohol abuse, uncomplicated; R51.9 Headache, unspecified
CPT/HCPCS: 36415; 82306; 82607; 82746; 86038; 86308; 86803

== ENCOUNTER 2023-07-17 16:44 | Outpatient (CLI) | payer OTHER ==
[2023-07-17 17:01] LABS: BASOPHILS % (AUTO) 0.3 %; EOSINOPHILS # (AUTO) 0.3 10^3/uL (0.0-0.7); EOSINOPHILS % (AUTO) 3.6 %; HGB - HEMOGLOBIN 14.4 g/dL (12.0-16.0); LYMPHOCYTES % (AUTO) 27.8 %; MEAN CORPUSCULAR HEMOGLOBIN 32.5 pg (27.0-31.0); MEAN CORPUSCULAR HGB CONC 33.5 g/dL (32.0-36.0); MEAN CORPUSCULAR VOLUME 97.1 fL (81.0-99.0); MEAN PLATELET VOLUME 9.4 fL (7.9-10.8); MONOCYTES # (AUTO) 0.6 10^3/uL (0.0-1.0); MONOCYTES % (AUTO) 7.6 %; NEUTROPHILS # (AUTO) 4.4 10^3/uL (1.5-6.6); NEUTROPHILS % (AUTO) 60.6 %; PLT - PLATELET COUNT 227 10^3/uL (130-450); RED BLOOD COUNT 4.43 10^6/uL (4.20-5.40); RED CELL DISTRIBUTION WIDTH 12.4 % (12.0-15.0); WHITE BLOOD COUNT 7.2 x10^3/uL (4.8-10.8)
[2023-07-17 17:16] LABS: ALBUMIN 4.4 g/dL (3.2-5.5); ALBUMIN/GLOBULIN RATIO 1.7 (1.0-2.2); BILIRUBIN,TOTAL 0.4 mg/dL (0.2-1.0); CALCIUM 9.6 mg/dL (8.5-10.3); CREATININE 0.8 mg/dL (0.6-1.3); POTASSIUM 3.8 mmol/L (3.5-4.5)
== END 2023-07-17 16:45 | disposition home or self-care (01) ==
LOC: LAB 16:44
PROVIDERS: ATTEND Nurse Practitioner Family
DX: R10.12 Left upper quadrant pain (principal)
CPT/HCPCS: 36415; 80053; 82150; 83690; 85025

== ENCOUNTER 2023-07-27 10:57 | Outpatient (CLI) | payer OTHER ==
[2023-07-27 11:08] LABS: BILIRUBIN,URINE NEGATIVE (NEGATIVE); GLUCOSE, URINE (UA) NEGATIVE (NEGATIVE); KETONES,URINE (UA) NEGATIVE (NEGATIVE); LEUKOCYTE ESTERASE, URINE NEGATIVE (NEGATIVE); NITRITE,URINE NEGATIVE (NEGATIVE); OCCULT BLOOD,URINE NEGATIVE (NEGATIVE); PH,URINE 5.5 PH (5.0-7.5); PROTEIN,URINE NEGATIVE (NEGATIVE); UROBILINOGEN,URINE 0.2 (NORMAL) E.U./dL (NORMAL)
[2023-07-27 11:16] LABS: CLARITY,URINE CLEAR (CLEAR)
== END 2023-07-27 10:58 | disposition home or self-care (01) ==
LOC: LAB 10:57
PROVIDERS: ATTEND Registered Nurse
DX: R10.9 Unspecified abdominal pain (principal); R82.998 Other abnormal findings in urine; R82.4 Acetonuria
CPT/HCPCS: 81001; 81003; 87086

== ENCOUNTER 2023-08-12 18:44 | Emergency (ER) | payer OTHER ==
--- NOTE | 2023-08-12 19:02 | ED Physician Documentation ---
PD HPI CHEST PAIN - Stated complaint Stated Complaint: CHEST PX/SOA/BACK PX - Chief complaint Chief Complaint: Cardiac - History obtained from History obtained from: Patient - Additional information Additional information: 32-year-old woman with history of WPW, has occasional palpitations but otherwise it has not bothered her. Midmorning she developed chest discomfort that over the last few hours to spread to the upper back and left jaw. She is short of breath and nauseous with it. It is not something she is ever had before. No possibility of . No recent travel. No pedal edema or calf pain. No heart disease in the family. She does smoke tobacco. PD PAST MEDICAL HISTORY - Past Medical History Past Medical History: Yes Cardiovascular: Other Respiratory: None Neuro: None Endocrine/Autoimmune: None GI: GERD : None Psych: Depression, Anxiety Musculoskeletal: None Derm: None Other Past Medical History: WPW - Past Surgical History Past Surgical History: Yes /[employer]: Other - Present Medications Home Medications: Ambulatory Orders Medication Instructions Recorded Confirmed Famotidine [Pepcid] 20 mg PO DAILY PRN 03/17/23 08/12/23 - Allergies Allergies/Adverse Reactions: Allergies Allergy/AdvReac Type Severity Reaction Status Date / Time bupropion [From Wellbutrin] AdvReac Anxiety Verified 08/12/23 18:47 - Social History Does the pt smoke?: Yes Smoking Status: Current every day smoker Does the pt drink ETOH?: Yes Does the pt have substance abuse?: Yes - Immunizations Immunizations are current?: Yes - POLST Patient has POLST: No PD ED PE NORMAL - Vitals Vital signs reviewed: Yes (Modest resting tachycardia) - General General: Alert and oriented X 3, No acute distress - HEENT HEENT: PERRL, EOMI - Neck Neck: Supple, no meningeal sign, No bony TTP - Cardiac Cardiac: Other (Mild resting tachycardia, regular no murmur) - Respiratory Respiratory: No respiratory distress, Clear bilaterally - Abdomen Abdomen: Non tender - Extremities Extremities: No edema, No calf tenderness / cord - Neuro Neuro: Alert and oriented X 3, Normal speech Results - Vitals Vitals: Vital Signs - 24 hr 08/12/23 08/12/23 08/12/23 18:47 18:50 19:20 Temperature 36.8 C Heart Rate 95 98 102 H Respiratory 16 16 16 Rate Blood Pressure 152/94 H 165/95 H 165/95 H O2 Saturation 100 99 99 08/12/23 08/12/23 08/12/23 20:00 20:30 21:00 Temperature Heart Rate 85 89 79 Respiratory 16 19 17 Rate Blood Pressure 130/92 H 150/100 H 132/90 H O2 Saturation 98 98 98 08/12/23 21:23 Temperature Heart Rate 77 Respiratory 22 Rate Blood Pressure O2 Saturation 97 Oxygen O2 Source Room air - EKG (time done) 1944 EKG releavant findings:: EKG personally interpreted by author of this note. Relevant findings are: Rate: Rate (enter#) (90) Rhythm: NSR [place]: Normal Intervals: Other (short saad but no delta) QRS: Normal Ischemia: Normal ST segments. No: ST elevation c/w ischemia, ST depression - Labs Labs: Laboratory Tests 08/12/23 08/12/23 19:53 19:53 D-Dimer 269.3 H Sodium 137 Potassium 3.9 Chloride 104 Carbon Dioxide 23 Anion Gap 10.0 BUN 14 Creatinine 0.7 Estimated GFR (MDRD) 96 Glucose 95 Calcium 9.9 Total Bilirubin 0.3 AST 16 ALT 14 Alkaline Phosphatase 62 Troponin I High Sens 2.3 Total Protein 7.3 Albumin 4.4 Globulin 2.9 Albumin/Globulin Ratio 1.5 Lipase 15 Procedures - General procedure General procedure: Peripheral IV placement by physician: She was a difficult stick and the nurses tried and failed. I placed a 20-gauge IV in the right cephalic vein using real-time ultrasound guidance the flushed and brian well. PD Medical Decision Making - ED course ED course: 32-year-old woman with chest discomfort all day. EKG was nonischemic. Reportedly has a history of WPW and has have a short WA interval but without delta wave. This should not cause pain now. She is mildly tachycardic so PE is entertained and D-dimer was done very mildly positive. She was a difficult IV stick and I personally placed the IV for her CT. Troponin was negative and heart score of 1-2 depending on the subjectiveness of the story. CT was subsequently negative. Departure - Departure Disposition: Home, Self Care Clinical Impression: Chest pain Qualifiers: Chest pain type: unspecified Qualified Code(s): R07.9 - Chest pain, unspecified Condition: Good Record reviewed to determine appropriate education?: Yes Instructions: ED Chest Pain NonCardiac Comments: Heart testing including EKG, troponin testing were normal with the exception of a short WA interval from your known WPW which should not actually cause pain per se. Your D-dimer which is a screening test for blood clots was very mildly elevated and as such a CT was done with IV contrast and negative for same so no need to worry about that. Call your doctor to arrange a follow-up appointment, make the next available appointment. In the interim, return anytime if worse or if new symptoms develop. Forms: PCP List Discharge Date/Time: 08/12/23 21:24
[2023-08-12] MEDS ORDERED: iohexoL-300 100 ML VIAL ONE (19:06)
--- NOTE | 2023-08-12 19:44 | XRAY Report ---
PROCEDURE: Chest 1V INDICATIONS: Chest Pain TECHNIQUE: One view of the chest was acquired. COMPARISON: None. FINDINGS: Surgical changes and devices: None. Lungs and pleura: No pleural effusions or pneumothorax. Lungs are clear. Mediastinum: Mediastinal contours appear normal. Heart size is normal. Bones and chest wall: No suspicious bony lesions. Overlying soft tissues appear unremarkable. IMPRESSION: No acute cardiopulmonary process. Reviewed by: Jessica Gray MD on 08/12/2023 7:43 PM PST Approved by: Jessica Gray MD on 08/12/2023 7:43 PM PST Station ID: [id number]
[2023-08-12 20:19] LABS: ALBUMIN 4.4 g/dL (3.2-5.5); ALBUMIN/GLOBULIN RATIO 1.5 (1.0-2.2); BILIRUBIN,TOTAL 0.3 mg/dL (0.2-1.0); CALCIUM 9.9 mg/dL (8.5-10.3); CREATININE 0.7 mg/dL (0.6-1.3); POTASSIUM 3.9 mmol/L (3.5-4.5); TOTAL PROTEIN 7.3 g/dL (6.4-8.9)
[2023-08-12 20:23] LABS: TROPONIN I HIGH SENSITIVITY 2.3 ng/L (2.3-14.8)
[2023-08-12] MEDS ORDERED: iohexoL-300 100 ML VIAL IVP ONE (20:56)
--- NOTE | 2023-08-12 21:10 | CT Report ---
PROCEDURE: Angio Chest INDICATIONS: cp pe protocol CONTRAST: 100 ML OMNI 300 TECHNIQUE: After the administration of intravenous contrast, 2 mm axial images were acquired from the pulmonary apices to the posterior costophrenic angles during the arterial phase. In addition, 1 mm lung kernel and 5 mm soft tissue kernel reconstructions were performed. 3-dimensional coronal oblique maximum int ensity projection (MIP) reformats, 8 mm axial MIP, and 5 mm coronal and sagittal MPR reformats were t hen performed through the thorax. For radiation dose reduction, the following was used: automated exp osure control, adjustment of mA and/or kV according to patient size. COMPARISON: Ultrasound 11/07/2022, 12/26/2022 FINDINGS: Image quality: Excellent. Large vessels: No filling defects within the opacified pulmonary arteries, accounting for motion and contrast timing. No evidence of acute aortic syndrome or aortic aneurysm. Lungs and pleura: No consolidation. No pleural effusions. No pneumothorax. No suspicious pulmonary n odules which require follow up. Mediastinum: Heart size is normal. No pericardial effusion. No large vessel abnormality. No mediastin al adenopathy by size criteria. Chest wall and lower neck: Thyroid is unremarkable. No axillary or supraclavicular adenopathy by size . Bones: No aggressive osseous abnormality. Upper Abdomen: Flash filling lesion at the liver dome, presumably a small hemangioma or vascular shun t based on patient age (series 4, image 86). IMPRESSION: No pulmonary embolus. No acute cardiopulmonary process. Reviewed by: Zeeshan Willard MD on 08/12/2023 9:08 PM [facility] Approved by: Zeeshan Willard MD on 08/12/2023 9:08 PM PST Station ID: [id number]
[2023-08-12 21:26] VITALS: BP 132/90; O2SAT 97
== END 2023-08-12 21:24 | disposition home or self-care (01) ==
LOC: ED 18:44
DX: R07.9 Chest pain, unspecified (principal); R00.0 Tachycardia, unspecified; F17.200 Nicotine dependence, unspecified, uncomplicated
CPT/HCPCS: 36415; 71045; 71275; 80053; 83690; 84484; 85379; 93005; 99283; 99284; Q9967; 85025